=== PATIENT | male | born 1940 | race Hispanic/Latino ===

== ENCOUNTER 2016-10-31 13:36 | Observation (INO) | payer BC, MEDICARE, SELFPAY ==
--- NOTE | 2016-10-31 14:48 | ED PDOC ---
HPI: Abdomen Time Seen by Provider: 10/31/16 13:59 Chief Complaint (Nursing): Abdominal Pain Chief Complaint (Provider): Abdominal Pain History Per: Patient History/Exam Limitations: no limitations Onset/Duration Of Symptoms: Days (6x) Current Symptoms Are (Timing): Still Present Severity: Mild Location Of Pain/Discomfort: Diffuse (started as diffuse pain), Periumbilical ( currently is periumbilical pain) Associated Symptoms: Vomiting (has since resolved), Diarrhea (has since resolved ). denies: Fever, Urinary Symptoms Additional Complaint(s): 76 year old male with no pertinent medical history presents to the ED with complaints of abdominal pain that started out as diffuse but is now periumbilical for 6x days. He reports that he had associated symptoms of vomiting (non bloody) and diarrhea (non bloody) that have since resolved. He denies having a fever, urinary symptoms, and any other medical complaints. PMD: patient does not recall Past Medical History Reviewed: Historical Data, Nursing Documentation, Vital Signs Vital Signs: Last Vital Signs Temp 97.6 F 10/31/16 22:16 Pulse 58 L 10/31/16 22:16 Resp 18 10/31/16 22:16 BP 147/79 10/31/16 22:16 Pulse Ox 95 10/31/16 22:16 - Medical History PMH: Back Problems, CHF, HTN, Hyperlipidemia Denies: Chronic Kidney Disease - Surgical History Surgical History: No Surg Hx - Family History Family History: States: Unknown Family Hx - Social History Alcohol: None Drugs: Denies - Home Medications Home Medications: Ambulatory Orders Medication Instructions Recorded Tamsulosin [Flomax] 0.4 mg PO DAILY 08/04/14 Amlodipine Besylate 10 mg PO DAILY 08/08/14 Aspirin [Ecotrin] 81 mg PO DAILY 08/08/14 Hydrochlorothiazide 12.5 mg PO DAILY 08/08/14 Lisinopril 40 mg PO DAILY 08/08/14 Simvastatin 20 mg PO HS 08/08/14 - Allergies Allergies/Adverse Reactions: Allergies Allergy/AdvReac Type Severity Reaction Status Date / Time No Known Allergies Allergy Verified 07/27/14 08:43 Review of Systems ROS Statement: Except As Marked, All Systems Reviewed And Found Negative Constitutional: Negative for: Fever Gastrointestinal: Positive for: Vomiting (none bloody, has resolved), Abdominal Pain, Diarrhea (non bloody, has resolved) Genitourinary Male: Negative for: Dysuria, Frequency, Incontinence, Hematuria Physical Exam - Reviewed Nursing Documentation Reviewed: Yes Vital Signs Reviewed: Yes - Physical Exam Appears: Positive for: Well, Non-toxic, No Acute Distress Head Exam: Positive for: ATRAUMATIC, NORMOCEPHALIC Cardiovascular/Chest: Positive for: Regular Rate, Rhythm Respiratory: Positive for: Normal Breath Sounds Gastrointestinal/Abdominal: Positive for: Soft, Other (right upper quadrant abdominal tenderness. Everywhere else is soft, non-tender.). Negative for: Tenderness Back: Positive for: Normal Inspection. Negative for: L CVA Tenderness, R CVA Tenderness Neurologic/Psych: Positive for: Alert, Oriented (3x) - Laboratory Results Result Diagrams: 10/31/16 14:55 10/31/16 14:55 - ECG O2 Sat by Pulse Oximetry: 100 (RA) Pulse Ox Interpretation: Normal - Progress Re-evaluation Time: 17:00 Condition: Re-examined, Improving,but remains with symptoms - Physician Consult Information Time Consulting Physican Contacted: 17:40 Physician Contacted: Ernestine Brar Medical Decision Making Medical Decision Makin:59 Initial impression: 76 year old male with abdominal pain and vomiting and dirrhea (that have since resolved). Differential diagnoses include but are not limited to acute gastroenteritis, colitis, diverticulitis, small bowel obstruction, and other abdominal pathologies are observed. Initial plan: * CT abd and pelvis with IV contrast only * CMP * lipase * CBC * reevaluation 14:35 Patient will be placed into ED observation secondary to clinical condition. See ED observation note for further updates. CT abdomen IMPRESSION: No acute inflammatory/infectious process identified in the abdomen or pelvis. No evidence of bowel obstruction. Multiple small gallstones in the gallbladder. No biliary dilatation. 2 mm nonobstructing mid right renal calculus. 1 x 0.7 cm right lower lobe pulmonary nodule adjacent to the diaphragm. Recommend chest CT correlation. Extensive coronary artery calcifications. Enlarged prostate, correlate clinically. Nonspecific peripancreatic lymph nodes. Colonic diverticulosis without diverticulitis Scribe Attestation: Documented by Millicent Trammell, acting as a scribe for Kvng Thompson MD. Provider Scribe Attestation: All medical record entries made by the Scribe were at my direction and personally dictated by me. I have reviewed the chart and agree that the record accurately reflects my personal performance of the history, physical exam, medical decision making, and the department course for this patient. I have also personally directed, reviewed, and agree with the discharge instructions and disposition. ED OBSERVATION Date of observation admission: 10/31/16 Time of observation admission: 14:35 - Observation admission statement Patient is being placed in observation because:: secondary to clinical condition - Goals of Observation Goals of observation are:: Patient is being placed into ED observation pending CT scans, labs, reevaluation , and final disposition. Disposition - Clinical Impression Clinical Impression: Acute pancreatitis - Patient ED Disposition Is Patient to be Admitted: Yes Discussed With DrJean Paul: Sandeep Campuzano Doctor Will See Patient In The: Hospital Counseled Patient/Family Regarding: Studies Performed, Diagnosis - Disposition Disposition Time: 17:30 Condition: FAIR - Pt Status Changed To: Hospital Disposition Of: Observation - POA Present On Arrival: None
[2016-10-31 15:15] LABS: BASO # 0.1 K/uL (0.0-0.2); BASO % 0.5 % (0.0-2.0); EOS # 0.1 K/uL (0.0-0.7); EOS % 0.6 % (0.0-4.0); HEMATOCRIT 41.2 % (35.0-51.0); LYMPH # 2.2 K/uL (1.0-4.3); LYMPH % 21.8 % (20.0-40.0); MEAN CELL VOLUME 85.2 fl (80.0-94.0); MEAN CORPUSCULAR HEMOGLOBIN 28.6 pg (27.0-31.0); MEAN CORPUSCULAR HGB CONC 33.6 g/dL (33.0-37.0); MEAN PLATELET VOLUME 9.1 fl (7.2-11.7); MONO # 0.9 K/uL (0.0-0.8); MONO % 8.6 % (0.0-10.0); NEUT # 6.8 K/uL (1.8-7.0); NEUT % 68.5 % (50.0-75.0); NRBC % 0.1 % (0.0-0.0); WHITE BLOOD COUNT 9.9 K/uL (4.8-10.8)
[2016-10-31 15:50] LABS: ALKALINE PHOSPHATASE 100 U/L (38-126); ALT/SGPT 169 U/L (21-72); AST/SGOT 54 U/L (17-59); BILIRUBIN,TOTAL 0.6 mg/dl (0.2-1.3); BLOOD UREA NITROGEN 20 mg/dl (9-20); CALCIUM 9.7 mg/dL (8.4-10.2); CARBON DIOXIDE 29 mmol/L (22-30); CHLORIDE 101 mmol/L (98-107); GFR AFRICAN-AMERICAN > 60; GLUCOSE,RANDOM 98 mg/dL (75-110); LIPASE 1549 U/L (23-300); POTASSIUM 3.7 MMOL/L (3.6-5.0); SODIUM 143 mmol/l (132-148); TOTAL PROTEIN 7.5 G/DL (6.3-8.2)
[2016-10-31] MEDS ORDERED: Sodium Chloride 0.9% 1,000 ML IV STA (17:34)
[2016-10-31] MEDS ORDERED: Sodium Chloride 0.9% 1,000 ML IV SCH (17:45)
[2016-10-31] MEDS ORDERED: Iodixanol 320 MG/ML 100 ML BOTTLE IV ONE (18:54)
[2016-10-31] MEDS ORDERED: Sodium Chloride 0.9% 50 ML IV ONE (18:55)
[2016-11-01 07:36] VITALS: RESP 20
[2016-11-01 08:09] LABS: BASO % 0.5 % (0.0-2.0); EOS # 0.1 K/uL (0.0-0.7); EOS % 0.7 % (0.0-4.0); HEMATOCRIT 41.4 % (35.0-51.0); LYMPH # 2.5 K/uL (1.0-4.3); LYMPH % 27.1 % (20.0-40.0); MEAN CELL VOLUME 85.8 fl (80.0-94.0); MEAN CORPUSCULAR HEMOGLOBIN 28.4 pg (27.0-31.0); MEAN CORPUSCULAR HGB CONC 33.2 g/dL (33.0-37.0); MEAN PLATELET VOLUME 9.2 fl (7.2-11.7); MONO # 0.8 K/uL (0.0-0.8); MONO % 8.2 % (0.0-10.0); NEUT % 63.5 % (50.0-75.0); NRBC % 0.1 % (0.0-0.0); RED CELL DISTRIBUTION WIDTH 13.8 % (11.5-14.5); WHITE BLOOD COUNT 9.4 K/uL (4.8-10.8)
--- NOTE | 2016-11-01 08:25 | CP.PCM.HP ---
History of Present Illness - History of Present Illness History of Present Illness: pt aadmitted for epigastric pain found to ahve lipase 1500 and pancreatitis, at present w/o abd pain, n/v/d. pt feels hungry. ct abd w/o pancreatitis but found peipancreatic lymph and gall stones w/o obstruction, found lung nodule that has not been worked up in past. pt states quit smoking several years ago. no compalitns at [facility]. pending gi consult. Present on Admission - Present on Admission Any Indicators Present on Admission: No Review of Systems - Gastrointestinal Gastrointestinal: As Per HPI, Abdominal Pain Past Patient History - Past Medical History & Family History Past Medical History?: Yes - Past Social History Alcohol: None Drugs: Denies - CARDIAC Hx Congestive Heart Failure: Yes Hx Hypertension: Yes - PULMONARY Hx Respiratory Disorders: No - NEUROLOGICAL Hx Neurological Disorder: No - HEENT Hx HEENT Problems: No - RENAL Hx Chronic Kidney Disease: No - ENDOCRINE/METABOLIC Hx Endocrine Disorders: No - HEMATOLOGICAL/ONCOLOGICAL Hx Blood Disorders: No Hx AIDS: No Hx Human Immunodeficiency Virus (HIV): No - INTEGUMENTARY Hx Dermatological Problems: No Other/Comment: sun foote noted to face forehead and ext - MUSCULOSKELETAL/RHEUMATOLOGICAL Hx Arthritis: Yes (spine) Hx Falls: No - GASTROINTESTINAL Hx Gastrointestinal Disorders: No - GENITOURINARY/GYNECOLOGICAL Hx Genitourinary Disorders: No Other/Comment: denies - PSYCHIATRIC Hx Psychophysiologic Disorder: No Hx Substance Use: No - SURGICAL HISTORY Hx Surgeries: No - ANESTHESIA Hx Anesthesia: No Meds Allergies/Adverse Reactions: Allergies Allergy/AdvReac Type Severity Reaction Status Date / Time No Known Allergies Allergy Verified 07/27/14 08:43 Physical Exam - Constitutional Appears: Well, Non-toxic, No Acute Distress - Head Exam Head Exam: ATRAUMATIC, NORMAL INSPECTION, NORMOCEPHALIC - Eye Exam Eye Exam: EOMI, Normal appearance, PERRL Pupil Exam: NORMAL ACCOMODATION, PERRL - ENT Exam ENT Exam: Mucous Membranes Moist, Normal Exam - Neck Exam Neck exam: Positive for: Normal Inspection - Respiratory Exam Respiratory Exam: Clear to Auscultation Bilateral, NORMAL BREATHING PATTERN - Cardiovascular Exam Cardiovascular Exam: REGULAR RHYTHM, RRR, +S1, +S2 - GI/Abdominal Exam GI & Abdominal Exam: Normal Bowel Sounds, Soft. absent: Tenderness - Extremities Exam Extremities exam: Positive for: full ROM, normal capillary refill, normal inspection, pedal pulses present - Back Exam Back exam: NORMAL INSPECTION - Neurological Exam Neurological exam: Alert, CN II-XII Intact, Normal Gait, Oriented x3, Reflexes Normal - Psychiatric Exam Psychiatric exam: Normal Affect, Normal Mood - Skin Skin Exam: Dry, Intact, Normal Color, Warm Results - Vital Signs Recent Vital Signs: Last Vital Signs Temp 98.4 F 11/01/16 07:36 Pulse 89 11/01/16 07:36 Resp 20 11/01/16 07:36 BP 154/80 H 11/01/16 07:36 Pulse Ox 96 11/01/16 07:36 - Labs Result Diagrams: 11/01/16 06:30 11/01/16 06:30 Labs: Laboratory Results - last 24 hr 10/31/16 11/01/16 14:55 06:30 WBC 9.9 9.4 RBC 4.83 4.83 Hgb 13.8 13.7 Hct 41.2 41.4 MCV 85.2 85.8 MCH 28.6 28.4 MCHC 33.6 33.2 RDW 14.0 13.8 Plt Count 150 148 MPV 9.1 9.2 Neut % (Auto) 68.5 63.5 Lymph % (Auto) 21.8 27.1 [place] % (Auto) 8.6 8.2 Eos % (Auto) 0.6 0.7 Baso % (Auto) 0.5 0.5 Neut # 6.8 6.0 Lymph # 2.2 2.5 [place] # 0.9 H 0.8 Eos # 0.1 0.1 Baso # 0.1 0.0 Sodium 143 Potassium 3.7 Chloride 101 Carbon Dioxide 29 Anion Gap 17 BUN 20 Creatinine 0.8 Est GFR ( Amer) > 60 Est GFR (Non-Af Amer) > 60 Random Glucose 98 Calcium 9.7 Total Bilirubin 0.6 AST 54 ALT 169 H Alkaline Phosphatase 100 Total Protein 7.5 Albumin 3.8 Globulin 3.7 Albumin/Globulin Ratio 1.0 Lipase 1549 H Assessment & Plan (1) Acute pancreatitis Assessment and Plan: npo last night, adv to liquids this am as pain free and lipase trending down gi consult ivf pain control Status: Acute (2) DVT prophylaxis Assessment and Plan: scd and aehose ambulation Status: Acute (3) Lung nodule < 6cm on CT Assessment and Plan: chest ct outpt f/u Status: Acute Decision To Admit - Pt Status Changed To: Hospital Disposition Of: Observation - . Bed Request Type: Med/Surg Admitting Physician: Sarai Christina
[2016-11-01 08:29] LABS: ALKALINE PHOSPHATASE 108 U/L (38-126); ALT/SGPT 140 U/L (21-72); AST/SGOT 43 U/L (17-59); BILIRUBIN,TOTAL 0.9 mg/dl (0.2-1.3); BLOOD UREA NITROGEN 14 mg/dl (9-20); CALCIUM 9.3 mg/dL (8.4-10.2); CARBON DIOXIDE 29 mmol/L (22-30); CHLORIDE 102 mmol/L (98-107); GFR AFRICAN-AMERICAN > 60; GLUCOSE,RANDOM 105 mg/dL (75-110); LIPASE 793 U/L (23-300); POTASSIUM 3.5 MMOL/L (3.6-5.0); SODIUM 145 mmol/l (132-148); TOTAL PROTEIN 7.3 G/DL (6.3-8.2)
--- NOTE | 2016-11-01 10:12 | CT ---
PROCEDURE: CT Abdomen and Pelvis with contrast HISTORY: abdominal pain v/d COMPARISON: None. TECHNIQUE: Contrast dose: 100 cc Visipaque 320. Radiation dose: Total exam DLP = 1201.52 lanier mGy-cm. This CT exam was performed using one or more of the following dose reduction techniques: Automated exposure control, adjustment of the mA and/or kV according to patient size, and/or use of iterative reconstruction technique. FINDINGS: LOWER THORAX: 1 cm nodule right lower lobe. Well-circumscribed of uncertain etiology and significance. LIVER: Unremarkable. No gross lesion or ductal dilatation. GALLBLADDER AND BILE DUCTS: Cholelithiasis without CT evidence of acute cholecystitis. PANCREAS: Unremarkable. No gross lesion or ductal dilatation. SPLEEN: Unremarkable. ADRENALS: Unremarkable. No mass. Will KIDNEYS AND URETERS: Unremarkable. No hydronephrosis. No solid mass. Incidental finding(s): Multiple bilateral renal cysts the largest in the right kidney measures 6.2 x 7.3 cm. VASCULATURE: Unremarkable. No aortic aneurysm. BOWEL: Thickening of the wall of the 4th portion the duodenum and proximal jejunum consistent with enteritis, mild no evidence of mechanical obstruction. APPENDIX: No abnormalities to suggest acute appendicitis. No right lower quadrant inflammatory processes identified. PERITONEUM: Unremarkable. No free fluid. No free air. LYMPH NODES: Unremarkable. No enlarged lymph nodes. BLADDER: Unremarkable. REPRODUCTIVE: Enlarged prostate 6 x 7.4 cm. BONES: No acute fracture. Hemangioma L1 vertebral body a benign/incidental finding. OTHER FINDINGS: None. IMPRESSION: Duodenitis/jejunitis, mild and segmental without associated abnormality. Cholelithiasis without CT evidence of acute cholecystitis. 1 cm pulmonary nodule right lower lobe. In the absence of prior studies, follow-up CT of the thorax recommended. Concordant results (preliminary interpretation) provided by [facility]. Procedure Completed: 19:22. Preliminary ([facility]) Report: Dictated and Authenticated: 19:56. Final Interpretation: . November 01, 2016. At 10:09. November 01, 2016.
[2016-11-01] MEDS ORDERED: Lidocaine/Prilocaine CREAM 5GM TP ONE (11:21)
--- NOTE | 2016-11-01 12:09 | CP.PCM.CON ---
History of Present Illness - History of Present Illness History of Present Illness: CC: Abdominal pain HPI: 76 year old male with h/o back pain, CHF, HTN, HLD who presents with abdominal pain. He reports that it started 1 week ago. He says the pain started in the epigastric area, but radiatates across his abdomen. No back pain. He had associated nausea/vomiting with the pain. He feels better today with reduced pain. He is tolerating liquids already without exacerbation of pain. No chest pain or sob. No fever. No prior episodes. No etoh abuse. No new meds. PMHx CHF, HTN, HLD PSHx denies FHx no known h/o pancreas disease ROS A comprehensive review of systems was performed and was negative apart from HPI SHx non smoker or drinker, no drugs Past Patient History - Past Medical History & Family History Past Medical History?: Yes - Past Social History Alcohol: None Drugs: Denies - CARDIAC Hx Congestive Heart Failure: Yes Hx Hypertension: Yes - PULMONARY Hx Respiratory Disorders: No - NEUROLOGICAL Hx Neurological Disorder: No - HEENT Hx HEENT Problems: No - RENAL Hx Chronic Kidney Disease: No - ENDOCRINE/METABOLIC Hx Endocrine Disorders: No - HEMATOLOGICAL/ONCOLOGICAL Hx Blood Disorders: No Hx AIDS: No Hx Human Immunodeficiency Virus (HIV): No - INTEGUMENTARY Hx Dermatological Problems: No Other/Comment: sun foote noted to face forehead and ext - MUSCULOSKELETAL/RHEUMATOLOGICAL Hx Arthritis: Yes (spine) Hx Falls: No - GASTROINTESTINAL Hx Gastrointestinal Disorders: No - GENITOURINARY/GYNECOLOGICAL Hx Genitourinary Disorders: No Other/Comment: denies - PSYCHIATRIC Hx Psychophysiologic Disorder: No Hx Substance Use: No - SURGICAL HISTORY Hx Surgeries: No - ANESTHESIA Hx Anesthesia: No Meds Allergies/Adverse Reactions: Allergies Allergy/AdvReac Type Severity Reaction Status Date / Time No Known Allergies Allergy Verified 07/27/14 08:43 - Medications Medications: Current Medications Amlodipine Besylate (Norvasc) 10 mg PO DAILY [facility] Last Admin: 11/01/16 09:08 Dose: 10 mg Aspirin (Ecotrin) 81 mg PO DAILY [facility] Last Admin: 11/01/16 09:08 Dose: 81 mg Atorvastatin Calcium (Lipitor) 10 mg PO [facility] Last Admin: 11/01/16 00:01 Dose: 10 mg Hydrochlorothiazide (Microzide) 12.5 mg PO DAILY [facility] Last Admin: 11/01/16 09:09 Dose: 12.5 mg Sodium Chloride (Sodium Chloride 0.9%) 1,000 mls @ 125 mls/hr IV .Q8H [facility] Stop: 11/01/16 17:46 Last Admin: 11/01/16 02:06 Dose: 125 mls/hr Ketorolac Tromethamine (Toradol) 30 mg IVP Q6 PRN PRN Reason: pain 2-5 Lisinopril (Zestril) 40 mg PO DAILY [facility] Last Admin: 11/01/16 09:09 Dose: 40 mg Morphine Sulfate (Morphine) 2 mg IVP Q4 PRN PRN Reason: abd pain 6-10 Tamsulosin HCl (Flomax) 0.4 mg PO DAILY [facility] Last Admin: 11/01/16 09:10 Dose: 0.4 mg Physical Exam - Constitutional Appears: Well, No Acute Distress - Head Exam Head Exam: ATRAUMATIC, NORMOCEPHALIC - Eye Exam Eye Exam: Normal appearance, Scleral icterus - ENT Exam ENT Exam: Mucous Membranes Moist, Normal Oropharynx - Neck Exam Neck exam: Negative for: Lymphadenopathy - Respiratory Exam Respiratory Exam: NORMAL BREATHING PATTERN. absent: Respiratory Distress, Stridor - Cardiovascular Exam Cardiovascular Exam: REGULAR RHYTHM, +S1, +S2 - GI/Abdominal Exam GI & Abdominal Exam: Soft. absent: Distended, Tenderness - Neurological Exam Neurological exam: Alert, Oriented x3 - Psychiatric Exam Psychiatric exam: Normal Affect, Normal Mood - Skin Skin Exam: Dry, Warm Results - Vital Signs Recent Vital Signs: Last Vital Signs Temp 98.4 F 11/01/16 07:36 Pulse 89 11/01/16 07:36 Resp 20 11/01/16 07:36 BP 158/80 H 11/01/16 09:09 Pulse Ox 96 11/01/16 07:36 - Labs Result Diagrams: 11/01/16 06:30 11/01/16 06:30 Labs: Laboratory Results - last 24 hr 10/31/16 11/01/16 14:55 06:30 WBC 9.9 9.4 RBC 4.83 4.83 Hgb 13.8 13.7 Hct 41.2 41.4 MCV 85.2 85.8 MCH 28.6 28.4 MCHC 33.6 33.2 RDW 14.0 13.8 Plt Count 150 148 MPV 9.1 9.2 Neut % (Auto) 68.5 63.5 Lymph % (Auto) 21.8 27.1 [place] % (Auto) 8.6 8.2 Eos % (Auto) 0.6 0.7 Baso % (Auto) 0.5 0.5 Neut # 6.8 6.0 Lymph # 2.2 2.5 [place] # 0.9 H 0.8 Eos # 0.1 0.1 Baso # 0.1 0.0 Sodium 143 145 Potassium 3.7 3.5 L Chloride 101 102 Carbon Dioxide 29 29 Anion Gap 17 18 BUN 20 14 Creatinine 0.8 0.8 Est GFR ( Amer) > 60 > 60 Est GFR (Non-Af Amer) > 60 > 60 Random Glucose 98 105 Calcium 9.7 9.3 Total Bilirubin 0.6 0.9 AST 54 43 ALT 169 H 140 H Alkaline Phosphatase 100 108 Total Protein 7.5 7.3 Albumin 3.8 3.7 Globulin 3.7 3.6 Albumin/Globulin Ratio 1.0 1.0 Lipase 1549 H 793 H Assessment & Plan - Assessment and Plan (Free Text) Assessment: 76 year old male with h/o HTN, HLD, CHF a/w acute pancreatitis 1. Acute pancreatitis 2. Cholelithiasis Plan: -advance diet as tolerated to low fat -IV hydration with LR -recommend surgical consultation for consideration of cholecystectomy -pain control as needed -ct scan reviewed - Date & Time Date: 11/01/16 Time: 12:08
[2016-11-01 17:04] VITALS: BP 125/80; PULSE 78; TEMP 98; O2SAT 98
--- NOTE | 2016-11-01 17:25 | CT ---
PROCEDURE: CT Chest without contrast HISTORY: lung nodule COMPARISON: October 31, 2016. CT abdomen and pelvis. 1 cm pulmonary nodule identified right lower lobe. TECHNIQUE: Contiguous axial images were obtained through the chest without intravenous contrast enhancement. Sagittal and coronal reconstructions were performed. Radiation dose (DLP): 691.75 mGy-cm. This CT exam was performed using one or more of the following dose reduction techniques: Automated exposure control, adjustment of the mA and/or kV according to patient size, and/or use of iterative reconstruction technique. FINDINGS: LUNGS: Faint peripheral infiltrate anterior segment right upper lobe. Lower airway disease/bronchitis with peribronchial thickening. Confirmation of pulmonary nodule 1 cm adjacent to the diaphragm right lower lobe. 4 mm pulmonary nodule posterior segment right upper lobe. Less than 2 mm pulmonary nodule basilar segment left lower lobe. MEDIASTINUM: Unremarkable thoracic aorta. No aneurysm. Normal sized heart. Main pulmonary artery unremarkable. No vascular congestion. No lymphadenopathy. PLEURA: No pleural fluid. No pneumothorax. BONES: No fracture. No destructive lesion. UPPER ABDOMEN: Cholelithiasis without CT evidence of acute cholecystitis. OTHER FINDINGS: None. IMPRESSION: Pulmonary nodules right lower lobe, right upper lobe 1 cm and 4 mm respectively. Less than 2 mm nodule left lower lobe. No additional suspicious pulmonary abnormalities. Lower airway disease/ bronchitis -pneumonitis.
--- NOTE | 2016-11-01 20:02 | CP.PCM.DIS ---
Provider - Provider Date of Admission: 10/31/16 14:35 Attending physician: Sarai Christina MD Time Spent in preparation of Discharge (in minutes): 15 Diagnosis - Discharge Diagnosis (1) Acute pancreatitis Status: Acute (2) DVT prophylaxis Status: Acute (3) Lung nodule < 6cm on CT Status: Acute Hospital Course - Lab Results Lab Results: Most Recent Lab Values WBC 9.4 K/uL (4.8-10.8) 11/01/16 06:30 RBC 4.83 Mil/uL (4.40-5.90) 11/01/16 06:30 Hgb 13.7 g/dL (12.0-18.0) 11/01/16 06:30 Hct 41.4 % (35.0-51.0) 11/01/16 06:30 MCV 85.8 fl (80.0-94.0) 11/01/16 06:30 MCH 28.4 pg (27.0-31.0) 11/01/16 06:30 MCHC 33.2 g/dL (33.0-37.0) 11/01/16 06:30 RDW 13.8 % (11.5-14.5) 11/01/16 06:30 Plt Count 148 K/uL (130-400) 11/01/16 06:30 MPV 9.2 fl (7.2-11.7) 11/01/16 06:30 Neut % (Auto) 63.5 % (50.0-75.0) 11/01/16 06:30 Lymph % (Auto) 27.1 % (20.0-40.0) 11/01/16 06:30 [place] % (Auto) 8.2 % (0.0-10.0) 11/01/16 06:30 Eos % (Auto) 0.7 % (0.0-4.0) 11/01/16 06:30 Baso % (Auto) 0.5 % (0.0-2.0) 11/01/16 06:30 Neut # 6.0 K/uL (1.8-7.0) 11/01/16 06:30 Lymph # 2.5 K/uL (1.0-4.3) 11/01/16 06:30 [place] # 0.8 K/uL (0.0-0.8) 11/01/16 06:30 Eos # 0.1 K/uL (0.0-0.7) 11/01/16 06:30 Baso # 0.0 K/uL (0.0-0.2) 11/01/16 06:30 Sodium 145 mmol/l (132-148) 11/01/16 06:30 Potassium 3.5 MMOL/L (3.6-5.0) L 11/01/16 06:30 Chloride 102 mmol/L (98-107) 11/01/16 06:30 Carbon Dioxide 29 mmol/L (22-30) 11/01/16 06:30 Anion Gap 18 (10-20) 11/01/16 06:30 BUN 14 mg/dl (9-20) 11/01/16 06:30 Creatinine 0.8 mg/dL (0.8-1.5) 11/01/16 06:30 Est GFR ( Amer) > 60 11/01/16 06:30 Est GFR (Non-Af Amer) > 60 11/01/16 06:30 Random Glucose 105 mg/dL (75-110) 11/01/16 06:30 Calcium 9.3 mg/dL (8.4-10.2) 11/01/16 06:30 Total Bilirubin 0.9 mg/dl (0.2-1.3) 11/01/16 06:30 AST 43 U/L (17-59) 11/01/16 06:30 ALT 140 U/L (21-72) H 11/01/16 06:30 Alkaline Phosphatase 108 U/L (38-126) 11/01/16 06:30 Total Protein 7.3 G/DL (6.3-8.2) 11/01/16 06:30 Albumin 3.7 g/dL (3.5-5.0) 11/01/16 06:30 Globulin 3.6 gm/dL (2.2-3.9) 11/01/16 06:30 Albumin/Globulin Ratio 1.0 (1.0-2.1) 11/01/16 06:30 Lipase 793 U/L (23-300) H 11/01/16 06:30 Discharge Exam - Head Exam Head Exam: ATRAUMATIC, NORMOCEPHALIC Discharge Plan - Follow Up Plan Condition: FAIR Disposition: HOME/ ROUTINE Instructions: Pancreatitis (DC) Additional Instructions: tolerated all food well. no pain throughout day today. no f/c, n/v/d. bw noted. cleared by gi for dc imaign noted. pulm nodules noted. pt has pmd appt this week. no pulm s/s-no cough/congestion noted/reported for dc. f/u pmd, rted prn, medsp er med rec final dx-pancreatitis, pulm nodules bland diet.
== END 2016-11-01 19:03 | disposition home or self-care (01) ==
LOC: H.ER 13:36 → H.EROBSV 14:35 → H.ERHOLD 17:40 → H.MEDSURG1 22:03
PROVIDERS: ADMIT Family Medicine; ATTEND Family Medicine
DX: K85.90 Acute pancreatitis without necrosis or infection, unspecified (principal); R91.1 Solitary pulmonary nodule; K80.20 Calculus of gallbladder without cholecystitis without obstruction; I11.0 Hypertensive heart disease with heart failure; I50.9 Heart failure, unspecified; E78.5 Hyperlipidemia, unspecified; Z87.891 Personal history of nicotine dependence; Z79.82 Long term (current) use of aspirin
CPT/HCPCS: 36415; 71250; 74177; 80053; 83690; 85025; 96361; 96374; 99283; G0378; J2270; J7040; Q9967

== ENCOUNTER 2017-02-17 16:45 | Emergency (ER) | payer MEDICARE ==
[2017-02-17 16:57] VITALS: BP 115/51; PULSE 65; RESP 20; TEMP 98.6; O2SAT 96
[2017-02-17 17:54] LABS: BASO # 0.1 K/uL (0.0-0.2); BASO % 0.7 % (0.0-2.0); EOS # 0.1 K/uL (0.0-0.7); EOS % 0.9 % (0.0-4.0); HEMOGLOBIN 14.1 g/dL (12.0-18.0); LYMPH % 29.7 % (20.0-40.0); MEAN CORPUSCULAR HEMOGLOBIN 29.2 pg (27.0-31.0); MEAN CORPUSCULAR HGB CONC 34.4 g/dL (33.0-37.0); MEAN PLATELET VOLUME 8.5 fl (7.2-11.7); MONO % 9.5 % (0.0-10.0); NEUT % 59.2 % (50.0-75.0); NRBC % 0.1 % (0.0-0.0); RBC 4.84 Mil/uL (4.40-5.90); RED CELL DISTRIBUTION WIDTH 14.6 % (11.5-14.5); WHITE BLOOD COUNT 10.1 K/uL (4.8-10.8)
--- NOTE | 2017-02-17 17:56 | ED PDOC ---
HPI: Chest Pain Time Seen by Provider: 02/17/17 17:04 Chief Complaint (Nursing): Chest Pain Chief Complaint (Provider): Left Axilla Pain History Per: Patient History/Exam Limitations: no limitations Onset/Duration Of Symptoms: Intermittent Episodes Current Symptoms Are (Timing): Still Present Additional Complaint(s): Mateo Botello, a 76 year old male, with a past medical history of congestive heart failure, presents to the ED complaining of pain to the left axilla x1 week. The patient states that the pain has not moved into the left side of his chest. He states that the pain is intermittent and he is not experiencing any new shortness of breath. The patient states that he usually uses his inhaler when climbing stairs and when he is walking long distances. Denies cough, palpitations. Against Medical Advice - AMA Patient Left Against Medical Advice: The patient declines admission to the hospital and wishes to leave the Emergency Department. This action is against my medical advice. This decision was made with informed refusal. The patient was told that admission to the hospital is necessary. Explanation of the reasons why were discussed. The risks of leaving were explained to the patient and include, but are not limited to, worsening of known or currently unknown conditions, permanent disability and from undiagnosed or untreated conditions. The patient has the capacity to make this informed decision and understands my explanation of the current medical problem and risks of leaving. The patient voluntarily accepts these risks and signed an AMA form documenting our conversation. The patient was given the opportunity to ask questions and reconsider. The patient was encouraged to return to the Emergency Department at any time for further care. Past Medical History Reviewed: Historical Data, Nursing Documentation, Vital Signs Vital Signs: Last Vital Signs Temp 98.6 F 02/17/17 16:55 Pulse 65 02/17/17 16:55 Resp 20 02/17/17 16:55 BP 115/51 L 02/17/17 16:55 Pulse Ox 96 02/22/17 08:21 - Medical History PMH: Arthritis (spine), Back Problems, CHF, HTN, Hyperlipidemia Denies: HIV, Chronic Kidney Disease - Family History Family History: States: Unknown Family Hx - Home Medications Home Medications: Ambulatory Orders Medication Instructions Recorded Tamsulosin [Flomax] 0.4 mg PO DAILY 08/04/14 Amlodipine Besylate 10 mg PO DAILY 08/08/14 Aspirin [Ecotrin] 81 mg PO DAILY 08/08/14 Hydrochlorothiazide 12.5 mg PO DAILY 08/08/14 Lisinopril 40 mg PO DAILY 08/08/14 Simvastatin 20 mg PO HS 08/08/14 - Allergies Allergies/Adverse Reactions: Allergies Allergy/AdvReac Type Severity Reaction Status Date / Time No Known Allergies Allergy Verified 02/17/17 16:54 Review of Systems ROS Statement: Except As Marked, All Systems Reviewed And Found Negative Cardiovascular: Positive for: Chest Pain. Negative for: Palpitations Respiratory: Negative for: Cough, Shortness of Breath (no new shortness of breath) Physical Exam - Reviewed Nursing Documentation Reviewed: Yes Vital Signs Reviewed: Yes - Physical Exam Appears: Positive for: Non-toxic, No Acute Distress Head Exam: Positive for: ATRAUMATIC, NORMAL INSPECTION, NORMOCEPHALIC Skin: Positive for: Normal Color, Warm, Dry Eye Exam: Positive for: Normal appearance, EOMI, PERRL ENT: Positive for: Normal ENT Inspection Neck: Positive for: Normal, Painless ROM, Supple Cardiovascular/Chest: Positive for: Regular Rate, Rhythm, Chest Non Tender (No tenderness to chest wall). Negative for: Tachycardia Respiratory: Positive for: Crackles (Bilateral crackles). Negative for: Wheezing, Respiratory Distress Gastrointestinal/Abdominal: Positive for: Normal Exam, Bowel Sounds, Soft. Negative for: Tenderness, Guarding, Rebound Back: Positive for: Normal Inspection Extremity: Positive for: Normal ROM, Other (+2 pitting edema bilaterally.). Negative for: Tenderness, Pedal Edema, Deformity Neurologic/Psych: Positive for: Alert, Oriented - Laboratory Results Result Diagrams: 02/17/17 17:40 02/17/17 17:40 - ECG Interpretation Of ECG: NSR @ 63, no ST-T changes. O2 Sat by Pulse Oximetry: 96 (RA) Pulse Ox Interpretation: Normal - Radiology X-Ray: Read By Radiologist X-Ray Interpretation: Cardiomegaly Medical Decision Making Medical Decision Makin Initial Impression: 76 year old male presenting with CHF vs Chest pain Initial Plan: * EKG * PROBNP * Comp Metabolic Panel * Troponin * Udip * CBC * PTT * Prothrombin Time * Chest x-ray * Urinalysis * Reevaluation ___ Scribe Attestation Documented by Priyanka Ryan acting as a scribe for Ana Cristina Moses MD. Provider Attestation: All medical record entries made by the Scribe were at my direction and personally dictated by me. I have reviewed the chart and agree that the record accurately reflects my personal performance of the history, physical exam, medical decision making, and the department course for this patient. I have also personally directed, reviewed, and agree with the discharge instructions and disposition. Disposition - Clinical Impression Clinical Impression: Chest pain - Disposition Disposition: Against Medical Advice Disposition Time: 18:35 Condition: UNKNOWN Forms: [employer] (Kinyarwanda)
[2017-02-17 18:02] LABS: ALB/GLOB RATIO 1.3 (1.0-2.1); ALT/SGPT 44 U/L (21-72); AST/SGOT 27 U/L (17-59); BLOOD UREA NITROGEN 19 mg/dl (9-20); CALCIUM 9.4 mg/dL (8.4-10.2); GFR AFRICAN-AMERICAN > 60; GFR NON-AFRICAN AMERICAN > 60
[2017-02-17 18:05] LABS: PROTHROMBIN TIME 12.1 Seconds (9.8-13.1)
[2017-02-17 18:06] LABS: INR 1.2 (0.9-1.2); PARTIAL THROMBOPLASTIN TIME 32.7 Seconds (25.6-37.1)
--- NOTE | 2017-02-17 18:10 | RAD ---
HISTORY: CP COMPARISON: Chest x-ray performed 08/08/14 TECHNIQUE: Chest, one view. FINDINGS: LUNGS: No focal consolidation. Please note that chest x-ray has limited sensitivity for the detection of pulmonary masses. PLEURA: No significant pleural effusion identified. No definite pneumothorax . CARDIOVASCULAR: Cardiomegaly. OSSEOUS STRUCTURES: Degenerative changes of the spine. VISUALIZED UPPER ABDOMEN: Unremarkable. OTHER FINDINGS: None. IMPRESSION: Cardiomegaly.
[2017-02-17 18:14] LABS: B-TYPE NATRIURETIC PEPTIDE 83.1 pg/ml (0-900)
[2017-02-17] MEDS ORDERED: Potassium Chloride 20 mEq ER Tab PO STA (18:21)
[2017-02-17 19:23] LABS: SQUAMOUS EPITHIAL < 1 /hpf (0-5); URINE BILIRUBIN NEGATIVE (NEGATIVE); URINE BLOOD NEGATIVE (NEGATIVE); URINE CLARITY SLIGHTY-CLOUDY (Clear); URINE COLOR YELLOW (YELLOW); URINE GLUCOSE (UA) NEG (Normal); URINE LEUKOCYTE ESTERASE NEG Leu/uL (Negative); URINE NITRATE NEGATIVE (NEGATIVE); URINE PROTEIN 100 mg/dL (NEGATIVE); URINE UROBILINOGEN 0.2-1.0 mg/dL (0.2-1.0)
--- NOTE | 2017-02-18 10:44 | CARD ---
APPROVED REPORT EKG Measurement Heart [id number] <Conclusion> Normal sinus rhythm Normal ECG
== END 2017-02-17 18:59 | disposition home or self-care (01) ==
LOC: H.ER 16:45
DX: R07.89 Other chest pain (principal); E78.5 Hyperlipidemia, unspecified; I11.0 Hypertensive heart disease with heart failure; I50.9 Heart failure, unspecified; Z79.82 Long term (current) use of aspirin

== ENCOUNTER 2017-12-11 09:19 | Inpatient (IN) | payer MEDICARE, OTHER ==
[2017-12-11 09:23] VITALS: BMI 29.0
[2017-12-11] MEDS ORDERED: Sodium Chloride 0.9% 1,000 ML IV STA (09:44)
--- NOTE | 2017-12-11 10:02 | ED PDOC ---
HPI: Abdomen Time Seen by Provider: 12/11/17 09:40 Chief Complaint (Nursing): Abdominal Pain Chief Complaint (Provider): Abdominal Pain History Per: Patient History/Exam Limitations: no limitations Onset/Duration Of Symptoms: Days (x1) Outside of [place] travel?: No Current Symptoms Are (Timing): Still Present Location Of Pain/Discomfort: Other (LQ) Associated Symptoms: Nausea, Diarrhea. denies: Fever, Vomiting Additional Complaint(s): 77 y/o male with a history of HTN presents to the ED for lower abdominal pain. Patient states the pain began yesterday and is associated with nausea and diarrhea. He denies any vomiting, fever, or blood in diarrhea. PMD: none provided Past Medical History Reviewed: Historical Data, Nursing Documentation, Vital Signs Vital Signs: Last Vital Signs Temp 98.7 F 12/11/17 09:22 Pulse 58 L 12/11/17 09:22 Resp 16 12/11/17 09:22 BP 128/54 L 12/11/17 09:22 Pulse Ox 94 L 12/11/17 10:11 - Medical History PMH: Arthritis (spine), Back Problems, CHF, HTN, Hyperlipidemia Denies: HIV, Chronic Kidney Disease - Surgical History Surgical History: Cholecystectomy - Family History Family History: States: Unknown Family Hx - Social History Current smoker - smoking cessation education provided: No Ex-Smoker (has not smoked in the last 12 months): No Alcohol: None Drugs: Denies - Home Medications Home Medications: Ambulatory Orders Medication Instructions Recorded Tamsulosin [Flomax] 0.4 mg PO DAILY 08/04/14 Amlodipine Besylate 10 mg PO DAILY 08/08/14 Aspirin [Ecotrin] 81 mg PO DAILY 08/08/14 Hydrochlorothiazide 12.5 mg PO DAILY 08/08/14 Lisinopril 40 mg PO DAILY 08/08/14 Simvastatin 20 mg PO HS 08/08/14 - Allergies Allergies/Adverse Reactions: Allergies Allergy/AdvReac Type Severity Reaction Status Date / Time No Known Allergies Allergy Verified 12/11/17 09:29 Review of Systems ROS Statement: Except As Marked, All Systems Reviewed And Found Negative Constitutional: Negative for: Fever Gastrointestinal: Positive for: Nausea, Abdominal Pain (lower quadrant), Diarrhea. Negative for: Vomiting, Hematochezia Physical Exam - Reviewed Nursing Documentation Reviewed: Yes Vital Signs Reviewed: Yes - Physical Exam Appears: Positive for: Non-toxic, No Acute Distress Head Exam: Positive for: ATRAUMATIC, NORMAL INSPECTION, NORMOCEPHALIC Skin: Positive for: Normal Color, Warm, DRY Eye Exam: Positive for: EOMI, Normal appearance, PERRL ENT: Positive for: Normal ENT Inspection, Other (mucous membranes dry) Cardiovascular/Chest: Positive for: Regular Rate, Rhythm. Negative for: Murmur Respiratory: Positive for: Normal Breath Sounds. Negative for: Respiratory Distress Gastrointestinal/Abdominal: Positive for: Soft, Tenderness (LQ bilaterally). Negative for: Guarding, Rebound Extremity: Positive for: Normal ROM Neurologic/Psych: Positive for: Alert (awake), Oriented (x3). Negative for: Motor/Sensory Deficits - Laboratory Results Result Diagrams: 12/11/17 09:58 12/11/17 09:58 - ECG O2 Sat by Pulse Oximetry: 94 (RA) Pulse Ox Interpretation: Normal Medical Decision Making Medical Decision Making: Time: 09:22 Impression: will be completed later per provider Initial Plan: * CAT Scan Abd/Pelvis IV contrast * CMP * UDip * CBC * Morphine 2 mg IVP * IV Fluids * Zofran 4 mg PO Scribe Attestation: Documented by Neisha Salazar acting as a scribe for Luz Lovell MD. Scribe Attestation: All medical record entries made by the Scribe were at my direction and personally dictated by me. I have reviewed the chart and agree that the record accurately reflects my personal performance of the history, physical exam, medical decision making, and the department course for this patient. I have also personally directed, reviewed, and agree with the discharge instructions and disposition. Disposition - Clinical Impression Clinical Impression: Diverticulitis - Patient ED Disposition Is Patient to be Admitted: Yes - Disposition Disposition Time: 13:07 Condition: FAIR Forms: [employer] (Turkmen) - Pt Status Changed To: Hospital Disposition Of: Inpatient - Admit Certification Admit to Inpatient:: After my assessment, the patient will require hospitalization for at least two midnights. This is because of the severity of symptoms shown, intensity of services needed, and/or the medical risk in this patient being treated as an outpatient. - POA Present On Arrival: None
[2017-12-11 10:16] LABS: BASO # 0.1 K/uL (0.0-0.2); BASO % 0.6 % (0.0-2.0); EOS % 0.2 % (0.0-4.0); HEMOGLOBIN 14.2 g/dL (12.0-18.0); LYMPH # 1.9 K/uL (1.0-4.3); LYMPH % 12.3 % (20.0-40.0); MEAN CELL VOLUME 85.5 fl (80.0-94.0); MEAN CORPUSCULAR HEMOGLOBIN 28.9 pg (27.0-31.0); MEAN CORPUSCULAR HGB CONC 33.7 g/dL (33.0-37.0); MEAN PLATELET VOLUME 9.5 fl (7.2-11.7); MONO # 0.7 K/uL (0.0-0.8); MONO % 4.4 % (0.0-10.0); NEUT # 12.4 K/uL (1.8-7.0); NEUT % 82.5 % (50.0-75.0); RBC 4.93 Mil/uL (4.40-5.90); RED CELL DISTRIBUTION WIDTH 14.4 % (11.5-14.5); WHITE BLOOD COUNT 15.1 K/uL (4.8-10.8)
[2017-12-11 10:38] LABS: CALCIUM 9.3 mg/dL (8.4-10.2); GFR AFRICAN-AMERICAN > 60; GFR NON-AFRICAN AMERICAN > 60
[2017-12-11 10:40] LABS: ALB/GLOB RATIO 1.1 (1.0-2.1); ALT/SGPT 59 U/L (21-72); AST/SGOT 66 U/L (17-59); BLOOD UREA NITROGEN 28 mg/dl (9-20)
[2017-12-11] MEDS ORDERED: Sodium Chloride 0.9% 50 ML IV ONE (11:02)
[2017-12-11] MEDS ORDERED: Iohexol 300 100 ML IJ ONE (11:02)
--- NOTE | 2017-12-11 12:22 | CT ---
PROCEDURE: CT Abdomen and Pelvis with contrast HISTORY: Abdominal pain COMPARISON: 10/31/2016. TECHNIQUE: CT scan of the abdomen and pelvis was performed after administration of intravenous contrast. Oral contrast was not administered. Coronal and sagittal reformatted images were obtained. Contrast dose: 98 cc Omnipaque Radiation dose: Total exam DLP = 2648.50 mGy-cm. This CT exam was performed using one or more of the following dose reduction techniques: Automated exposure control, adjustment of the mA and/or kV according to patient size, and/or use of iterative reconstruction technique. FINDINGS: LOWER THORAX: The visualized lungs are clear. There is a stable 4 mm nodule in the right middle lobe. The previously demonstrated right lower lobe nodule is not well visualized on the current examination. LIVER: Normal in size with homogeneous enhancement. No gross lesion or ductal dilatation. GALLBLADDER AND BILE DUCTS: Surgically absent. PANCREAS: Normal in size with homogeneous enhancement. No gross lesion or ductal dilatation. SPLEEN: Normal in size and appearance. ADRENALS: No discrete nodule. KIDNEYS AND URETERS: Normal in size and with homogeneous enhancement without nephrolithiasis. There is a tiny nonspecific calcification in the right interpolar region. No hydronephrosis. No solid mass. There are simple cysts in both kidneys, the largest in the right interpolar region measures 8.2 x 6.7 cm. VASCULATURE: No aortic aneurysm. BOWEL: The small bowel loops are normal in caliber. The ascending, transverse and proximal descending colon are decompressed. There is left colonic diverticulosis. There is apparent segmental mural thickening in the distal descending and proximal sigmoid colon. APPENDIX: Normal appendix. PERITONEUM: No free fluid. No free air. LYMPH NODES: No enlarged lymph nodes. BLADDER: Moderate circumferential mural thickening in the urinary bladder wall. REPRODUCTIVE: There is severe enlargement of the prostate gland with median lobe hypertrophy indenting on the base of the urinary bladder. BONES: No acute fracture. Dextroscoliosis in the lumbar spine and diffuse bone demineralization with multilevel degenerative changes. There is stable appearance of hemangioma in the an 1 vertebral body with OTHER FINDINGS: There is a small sliding hiatal hernia. IMPRESSION: 1. Left colonic diverticulosis. Apparent mild mural thickening in the distal descending and proximal sigmoid colon is nonspecific and could be related to underdistention however early acute diverticulitis cannot be entirely excluded. No micro perforation or abscess. 2. Simple renal cysts, the largest in the right interpolar region measures 8.2 x 6.7 cm.
[2017-12-11] MEDS ORDERED: metroNIDAZOLE 500mg/100ml NS 100 ML IVPB STA (12:55)
[2017-12-11] MEDS ORDERED: Ciprofloxacin 400mg/200ml D5W 400 MG/200 ML BAG IVPB STA (12:55)
[2017-12-11] MEDS ORDERED: Ciprofloxacin 400mg/200ml D5W 400 MG/200 ML BAG IVPB ONE (13:14)
[2017-12-11] MEDS ORDERED: metroNIDAZOLE 500mg/100ml NS 100 ML IVPB ONE (14:40)
[2017-12-11] MEDS: Dextrose 5%/Lactated Ringer's 1,000 ML IV SCH (20:22)
[2017-12-11] MEDS: Ciprofloxacin 400mg/200ml D5W 400 MG/200 ML BAG IVPB SCH (20:24)
[2017-12-12] MEDS: metroNIDAZOLE 500mg/100ml NS 100 ML IVPB SCH ×3 (01:26→16:28)
[2017-12-12] MEDS: Dextrose 5%/Lactated Ringer's 1,000 ML IV SCH (04:00)
[2017-12-12] MEDS: Ciprofloxacin 400mg/200ml D5W 400 MG/200 ML BAG IVPB SCH ×2 (08:35→22:09)
--- NOTE | 2017-12-12 13:14 | CP.PCM.HP ---
History of Present Illness - History of Present Illness History of Present Illness: This is a 77 y/o male with hx of HTn was admitted for progressive worsening of left sided and pain. He denies any fever vomiting or diarrhea. he had not had a bm since the onset of abd pain. He denies having any episode in the past No recent colonoscopy Has HTN and hyperlipidemia and BPH which has been well controlled with medications. Present on Admission - Present on Admission Any Indicators Present on Admission: No History of DVT/PE: No History of Uncontrolled Diabetes: No Urinary Catheter: No Decubitus Ulcer Present: No Past Patient History - Past Medical History & Family History Past Medical History?: Yes - Past Social History Smoking Status: Former Smoker - CARDIAC Hx Cardiac Disorders: Yes (CHF,HTN, High cholesterol) - PULMONARY Hx Respiratory Disorders: No - NEUROLOGICAL Hx Neurological Disorder: No - HEENT Hx HEENT Problems: No - RENAL Hx Chronic Kidney Disease: No - ENDOCRINE/METABOLIC Hx Endocrine Disorders: No - HEMATOLOGICAL/ONCOLOGICAL Hx Human Immunodeficiency Virus (HIV): No - INTEGUMENTARY Hx Dermatological Problems: No Other/Comment: sun foote noted to face forehead and ext - MUSCULOSKELETAL/RHEUMATOLOGICAL Hx Musculoskeletal Disorders: Yes (arthritis) Hx Falls: No - GASTROINTESTINAL Hx Gastrointestinal Disorders: No - GENITOURINARY/GYNECOLOGICAL Hx Genitourinary Disorders: No Other/Comment: denies - PSYCHIATRIC Hx Psychophysiologic Disorder: No Hx Substance Use: No - SURGICAL HISTORY Hx Cholecystectomy: Yes - ANESTHESIA Hx Anesthesia: Yes Hx Anesthesia Reactions: No Meds Allergies/Adverse Reactions: Allergies Allergy/AdvReac Type Severity Reaction Status Date / Time No Known Allergies Allergy Verified 12/11/17 09:29 Physical Exam - Head Exam Head Exam: NORMAL INSPECTION - Eye Exam Eye Exam: Normal appearance - ENT Exam ENT Exam: Mucous Membranes Moist - Respiratory Exam Respiratory Exam: Clear to Auscultation Bilateral - GI/Abdominal Exam GI & Abdominal Exam: Normal Bowel Sounds - Neurological Exam Neurological exam: CN II-XII Intact, Oriented x3 Results - Vital Signs Recent Vital Signs: Last Vital Signs Temp 99.1 F 12/12/17 08:15 Pulse 80 12/12/17 08:25 Resp 20 12/12/17 08:15 BP 137/67 12/12/17 08:25 Pulse Ox 95 12/12/17 08:15 - Labs Result Diagrams: 12/12/17 14:39 12/12/17 14:39 Assessment & Plan (1) Diverticulitis Status: Acute (2) BPH (benign prostatic hyperplasia) Status: Acute (3) Hyperlipidemia Status: Acute (4) Hypertension Status: Acute - Assessment and Plan (Free Text) Plan: Keep NPO antacid hydrate check labs IV antibiotics repeat CBC in am.
[2017-12-12 15:03] LABS: BASO # 0.1 K/uL (0.0-0.2); EOS # 0.1 K/uL (0.0-0.7); EOS % 1.2 % (0.0-4.0); HEMOGLOBIN 13.1 g/dL (12.0-18.0); LYMPH # 1.9 K/uL (1.0-4.3); LYMPH % 15.6 % (20.0-40.0); MEAN CELL VOLUME 85.9 fl (80.0-94.0); MEAN CORPUSCULAR HEMOGLOBIN 28.8 pg (27.0-31.0); MEAN CORPUSCULAR HGB CONC 33.6 g/dL (33.0-37.0); MEAN PLATELET VOLUME 9.2 fl (7.2-11.7); MONO # 0.9 K/uL (0.0-0.8); MONO % 7.6 % (0.0-10.0); NEUT % 74.6 % (50.0-75.0); NRBC % 0.2 % (0.0-0.0); RBC 4.55 Mil/uL (4.40-5.90); RED CELL DISTRIBUTION WIDTH 14.5 % (11.5-14.5)
[2017-12-12 15:21] LABS: BLOOD UREA NITROGEN 13 mg/dl (9-20); GFR AFRICAN-AMERICAN > 60; GFR NON-AFRICAN AMERICAN > 60
[2017-12-12 15:22] LABS: ALB/GLOB RATIO 1.1 (1.0-2.1); ALBUMIN 3.8 g/dL (3.5-5.0); ALT/SGPT 48 U/L (21-72); AST/SGOT 29 U/L (17-59); CALCIUM 8.9 mg/dL (8.4-10.2)
[2017-12-12] MEDS ORDERED: Potassium Chloride 20 mEq ER Tab PO ONE (15:35)
--- NOTE | 2017-12-13 00:04 | CP.PCM.PN ---
Subjective - Date & Time of Evaluation Date of Evaluation: 12/12/17 Time of Evaluation: 14:00 - Subjective Subjective: Patient has some vague right mid and upper abd pain. Has no fever Had no bm for the past 4 days. Noted decrease in WBC Currently on Cipro and flagyl. Objective - Vital Signs/Intake and Output Vital Signs (last 24 hours): Temp Pulse Resp BP Pulse Ox 98.3 F 82 18 119/70 94 L 12/12/17 17:00 12/12/17 17:00 12/12/17 17:00 12/12/17 17:00 12/12/17 17:00 - Medications Medications: Current Medications Alprazolam (Xanax) 2 mg PO DAILY PRN PRN Reason: Anxiety Amlodipine Besylate (Norvasc) 10 mg PO DAILY [facility] Last Admin: 12/12/17 08:20 Dose: 10 mg Aspirin (Ecotrin) 81 mg PO DAILY [facility] Last Admin: 12/12/17 08:20 Dose: 81 mg Fluticasone Propionate (Flonase) 1 spr DELIA BID [facility] Last Admin: 12/12/17 16:29 Dose: 1 spr Hydrochlorothiazide (Microzide) 12.5 mg PO DAILY [facility] Last Admin: 12/12/17 08:20 Dose: 12.5 mg Metronidazole (Flagyl 500mg/100ml Ns) 100 mls @ 100 mls/hr IVPB Q8 [facility] PRN Reason: Protocol Stop: 12/17/17 00:00 Last Admin: 12/12/17 16:28 Dose: 100 mls/hr Ciprofloxacin (Cipro 400mg/200ml Dsw) 400 mg in 200 mls @ 200 mls/hr IVPB Q12 [facility] PRN Reason: Protocol Last Admin: 12/12/17 22:09 Dose: 200 mls/hr Ibuprofen (Motrin Tab) 400 mg PO Q8 PRN PRN Reason: Pain, Mild (1-3) Last Admin: 12/12/17 12:26 Dose: 400 mg Lactulose (Enulose) 20 gm PO DAILY PRN PRN Reason: Constipation Last Admin: 12/12/17 13:45 Dose: 20 gm Lisinopril (Zestril) 40 mg PO DAILY [facility] Last Admin: 12/12/17 08:25 Dose: 40 mg Pantoprazole Sodium (Protonix Inj) 40 mg IVP DAILY [facility] Last Admin: 12/12/17 08:22 Dose: 40 mg Tamsulosin HCl (Flomax) 0.4 mg PO DAILY [facility] Last Admin: 12/12/17 08:20 Dose: 0.4 mg - Labs Labs: 12/12/17 14:39 12/12/17 14:39 - Head Exam Head Exam: NORMAL INSPECTION - Eye Exam Eye Exam: Normal appearance - ENT Exam ENT Exam: Mucous Membranes Moist - Respiratory Exam Respiratory Exam: Clear to Ausculation Bilateral - Cardiovascular Exam Cardiovascular Exam: REGULAR RHYTHM - GI/Abdominal Exam GI & Abdominal Exam: Tenderness, Normal Bowel Sounds - Neurological Exam Neurological Exam: Awake, Oriented x3 Assessment and Plan (1) Diverticulitis Status: Acute (2) BPH (benign prostatic hyperplasia) Status: Acute (3) Hyperlipidemia Status: Acute (4) Hypertension Status: Acute - Assessment and Plan (Free Text) Plan: start clear liquids cont meds repeat CBC in am Con ttx. Give one dose of lactulose. DC plans for am.
[2017-12-13] MEDS: metroNIDAZOLE 500mg/100ml NS 100 ML IVPB SCH ×2 (01:37→09:40)
[2017-12-13 06:25] LABS: HEMOGLOBIN 13.5 g/dL (12.0-18.0); MEAN CORPUSCULAR HEMOGLOBIN 28.9 pg (27.0-31.0); MEAN CORPUSCULAR HGB CONC 33.6 g/dL (33.0-37.0); RBC 4.67 Mil/uL (4.40-5.90); RED CELL DISTRIBUTION WIDTH 14.6 % (11.5-14.5)
[2017-12-13 06:38] LABS: ALBUMIN 3.7 g/dL (3.5-5.0); ALT/SGPT 48 U/L (21-72); AST/SGOT 30 U/L (17-59); BLOOD UREA NITROGEN 15 mg/dl (9-20); CALCIUM 9.1 mg/dL (8.4-10.2); GFR AFRICAN-AMERICAN > 60; GFR NON-AFRICAN AMERICAN > 60
[2017-12-13 08:23] VITALS: BP 144/72; PULSE 80; RESP 20; TEMP 98; O2SAT 98
[2017-12-13] MEDS ORDERED: Hydrocortisone 2.5% (Rectal) CREAM PR SCH (09:00)
[2017-12-13] MEDS: Ciprofloxacin 400mg/200ml D5W 400 MG/200 ML BAG IVPB SCH (11:00)
--- NOTE | 2017-12-13 13:46 | CP.PCM.DIS ---
Provider - Provider Date of Admission: 12/11/17 13:06 Attending physician: Iggy Gutierrez MD Time Spent in preparation of Discharge (in minutes): 30 Diagnosis - Discharge Diagnosis (1) Diverticulitis Status: Acute (2) BPH (benign prostatic hyperplasia) Status: Acute (3) Hyperlipidemia Status: Acute (4) Hypertension Status: Acute Hospital Course - Lab Results Lab Results: Micro Results 12/11/17 13:30 Blood Blood Culture - Preliminary NO GROWTH AFTER 48 HOURS Most Recent Lab Values WBC 9.0 K/uL (4.8-10.8) 12/13/17 05:50 RBC 4.67 Mil/uL (4.40-5.90) 12/13/17 05:50 Hgb 13.5 g/dL (12.0-18.0) 12/13/17 05:50 Hct 40.2 % (35.0-51.0) 12/13/17 05:50 MCV 86.0 fl (80.0-94.0) 12/13/17 05:50 MCH 28.9 pg (27.0-31.0) 12/13/17 05:50 MCHC 33.6 g/dL (33.0-37.0) 12/13/17 05:50 RDW 14.6 % (11.5-14.5) H 12/13/17 05:50 Plt Count 132 K/uL (130-400) 12/13/17 05:50 MPV 9.2 fl (7.2-11.7) 12/12/17 14:39 Neut % (Auto) 74.6 % (50.0-75.0) 12/12/17 14:39 Lymph % (Auto) 15.6 % (20.0-40.0) L 12/12/17 14:39 [place] % (Auto) 7.6 % (0.0-10.0) 12/12/17 14:39 Eos % (Auto) 1.2 % (0.0-4.0) 12/12/17 14:39 Baso % (Auto) 1.0 % (0.0-2.0) 12/12/17 14:39 Neut # (Auto) 9.0 K/uL (1.8-7.0) H 12/12/17 14:39 Lymph # (Auto) 1.9 K/uL (1.0-4.3) 12/12/17 14:39 [place] # (Auto) 0.9 K/uL (0.0-0.8) H 12/12/17 14:39 Eos # (Auto) 0.1 K/uL (0.0-0.7) 12/12/17 14:39 Baso # (Auto) 0.1 K/uL (0.0-0.2) 12/12/17 14:39 Sodium 143 mmol/l (132-148) 12/13/17 05:50 Potassium 3.3 MMOL/L (3.6-5.0) L 12/13/17 05:50 Chloride 103 mmol/L (98-107) 12/13/17 05:50 Carbon Dioxide 27 mmol/L (22-30) 12/13/17 05:50 Anion Gap 16 (10-20) 12/13/17 05:50 BUN 15 mg/dl (9-20) 12/13/17 05:50 Creatinine 1.1 mg/dl (0.8-1.5) 12/13/17 05:50 Est GFR ( Amer) > 60 12/13/17 05:50 Est GFR (Non-Af Amer) > 60 12/13/17 05:50 Random Glucose 97 mg/dL (75-110) 12/13/17 05:50 Hemoglobin A1c 5.4 % (4.2-6.5) 12/12/17 18:00 Calcium 9.1 mg/dL (8.4-10.2) 12/13/17 05:50 Total Bilirubin 0.7 mg/dl (0.2-1.3) 12/13/17 05:50 AST 30 U/L (17-59) 12/13/17 05:50 ALT 48 U/L (21-72) 12/13/17 05:50 Alkaline Phosphatase 75 U/L (38-126) 12/13/17 05:50 Total Protein 7.2 G/DL (6.3-8.2) 12/13/17 05:50 Albumin 3.7 g/dL (3.5-5.0) 12/13/17 05:50 Globulin 3.5 gm/dL (2.2-3.9) 12/13/17 05:50 Albumin/Globulin Ratio 1.0 (1.0-2.1) 12/13/17 05:50 - Hospital Course Hospital Course: This is a 77 y/o male with hx of diverticuloses, HTN and BPH was admitted for new onset of diverticulitis. He claims to have vague abd pain in the LLQ area He had no fever but pain was persistent and worsened hence sought ER eval. He was placed on NPO and given hydration. He was started on IV cipro and flagyl. He responded well and diet was advanced. He was sent home on Cipro and flagyl and advised follow up with PMD. Discharge Exam - Head Exam Head Exam: NORMAL INSPECTION - Eye Exam Eye Exam: Normal appearance - Respiratory Exam Respiratory Exam: NORMAL BREATHING PATTERN - Cardiovascular Exam Cardiovascular Exam: REGULAR RHYTHM - GI/Abdominal Exam GI & Abdominal Exam: Normal Bowel Sounds - Neurological Exam Neurological exam: CN II-XII Intact, Reflexes Normal - Psychiatric Exam Psychiatric exam: Normal Mood Discharge Plan - Follow Up Plan Condition: FAIR Disposition: HOME/ ROUTINE Instructions: High Potassium Diet Additional Instructions: advised about specific foods to avoid Rx for Cipro and flagyl follow up with PMD in 2 weeks
== END 2017-12-13 16:02 | disposition home or self-care (01) | DRG 392 ==
LOC: H.ER 09:19 → H.ERHOLD 13:06 → H.MEDSURG1 15:14
PROVIDERS: ADMIT Family Medicine; ATTEND Family Medicine
DX: K57.92 Diverticulitis of intestine, part unspecified, without perforation or abscess without bleeding (principal); I10 Essential (primary) hypertension; E78.5 Hyperlipidemia, unspecified; E78.00 Pure hypercholesterolemia, unspecified; N40.0 Benign prostatic hyperplasia without lower urinary tract symptoms; Z87.891 Personal history of nicotine dependence; M46.90 Unspecified inflammatory spondylopathy, site unspecified

== ENCOUNTER 2018-04-05 13:41 | Emergency (ER) | payer MEDICARE ==
[2018-04-05 13:41] VITALS: BMI 29.0
[2018-04-05 13:48] VITALS: TEMP 98.3
--- NOTE | 2018-04-05 15:24 | ED PDOC ---
HPI: Back Time Seen by Provider: 04/05/18 14:30 Chief Complaint (Nursing): Back Pain Chief Complaint (Provider): Back Pain History Per: Patient Onset/Duration Of Symptoms: Hrs (x1) Current Symptoms Are (Timing): Still Present Quality Of Discomfort: "Pain" Additional Complaint(s): 78 year old male with a history of hypertension, CHF and asthma presents to the ED for evaluation of neck and back pain. Earlier today he tripped on a rug and landed on the side of a door, striking his head a few times on the way down. He has a small wound on his lower back. Notes that pain is ongoing from before incident. [facility]: [facility] - Risk Factors AAA Risk Factors: Pos: Hypertension Past Medical History Reviewed: Historical Data, Nursing Documentation, Vital Signs Vital Signs: Last Vital Signs Temp 98.3 F 04/05/18 13:45 Pulse 72 04/05/18 13:45 Resp 16 04/05/18 13:45 BP 132/59 L 04/05/18 13:45 Pulse Ox 96 04/05/18 13:45 - Medical History PMH: Arthritis (spine), Back Problems, CHF, HTN, Hyperlipidemia Denies: HIV, Chronic Kidney Disease - Surgical History Surgical History: Cholecystectomy - Family History Family History: States: Unknown Family Hx - Home Medications Home Medications: Ambulatory Orders Medication Instructions Recorded Tamsulosin [Flomax] 0.4 mg PO DAILY 08/04/14 Amlodipine Besylate 10 mg PO DAILY 08/08/14 Aspirin [Ecotrin] 81 mg PO DAILY 08/08/14 Hydrochlorothiazide 12.5 mg PO DAILY 08/08/14 Lisinopril 40 mg PO DAILY 08/08/14 ALPRAZolam [Xanax] 2 mg PO HS 12/11/17 ALPRAZolam [Xanax] 2 mg PO DAILY PRN tab 12/13/17 Aspirin [Ecotrin] 81 mg PO DAILY tabec 12/13/17 Fluticasone Propionate [Flonase] 1 spr DELIA BID #0 bottle 12/13/17 Lisinopril [Zestril] 40 mg PO DAILY tab 12/13/17 Pantoprazole [Protonix Inj] 40 mg IVP DAILY vial 12/13/17 amLODIPine [Norvasc] 10 mg PO DAILY tab 12/13/17 - Allergies Allergies/Adverse Reactions: Allergies Allergy/AdvReac Type Severity Reaction Status Date / Time No Known Allergies Allergy Verified 04/05/18 13:45 Review of Systems ROS Statement: Except As Marked, All Systems Reviewed And Found Negative Musculoskeletal: Positive for: Neck Pain, Back Pain Physical Exam - Reviewed Nursing Documentation Reviewed: Yes Vital Signs Reviewed: Yes - Physical Exam Appears: Positive for: Non-toxic, No Acute Distress Head Exam: Positive for: ATRAUMATIC, NORMAL INSPECTION, NORMOCEPHALIC Skin: Positive for: Normal Color, Warm, Dry Eye Exam: Positive for: EOMI, Normal appearance, PERRL Neck: Positive for: Pain On Movement Of Neck (paracervical tenderness) Cardiovascular/Chest: Positive for: Regular Rate, Rhythm, Chest Non Tender. Negative for: Murmur Respiratory: Positive for: Normal Breath Sounds. Negative for: Respiratory Distress Gastrointestinal/Abdominal: Positive for: Normal Exam, Soft. Negative for: Tenderness Back: Positive for: Other (3 cm abrasion noted). Negative for: L CVA Tenderness , R CVA Tenderness, Vertebral Tenderness (thoracic and lumbar tenderness) Neurologic/Psych: Positive for: Alert, Oriented (x 3). Negative for: Motor/ Sensory Deficits - ECG O2 Sat by Pulse Oximetry: 96 (RA) Pulse Ox Interpretation: Normal Medical Decision Making Medical Decision Makin;33 --CT C-spine --CT Head 16:11 CT Head FINDINGS: HEMORRHAGE: No intracranial hemorrhage. BRAIN: There are mild chronic microangiopathic changes. There is no mass, mass effect or abnormal extra-axial fluid collection. There is no territorial infarction. The midline sagittal structures are normal. VENTRICLES: There is moderate age-related global parenchymal volume loss and proportionate enlargement of the ventricles and cortical sulci. CALVARIUM: There is no calvarial fracture or extracranial soft tissue swelling. PARANASAL SINUSES: Predominantly clear. MASTOID AIR CELLS: Predominantly clear. OTHER FINDINGS: None. IMPRESSION: No acute intracranial abnormality. Mild chronic microangiopathic changes and moderate age-related global parenchymal volume loss. C-Spine FINDINGS: VERTEBRAE: There is normal alignment of the cervical vertebral bodies. There is straightening of the cervical spine with loss of normal cervical lordosis. There is no acute fracture, spondylolysis or spondylolisthesis. The craniocervical junction is normal. The atlantoaxial joint is normal. DISCS/SPINAL CANAL/NEURAL FORAMINA: There is mild multilevel degenerative disc disease due to combination of disc osteophyte complexes, uncovertebral joint hypertrophy and multilevel facet arthropathy, worse at C5-6 and C6-7 without central spinal canal stenosis. PARASPINAL SOFT TISSUES: The paraspinous soft tissues are normal. OTHER FINDINGS: No prevertebral soft tissue thickening. No apical pneumothorax. IMPRESSION: No acute fracture or traumatic anterior listhesis. Scribe Attestation: Documented by Clau Quarles, acting as a scribe for Angel Shelley PA-C Provider Scribe Attestation: All medical record entries made by the Scribe were at my direction and personally dictated by me. I have reviewed the chart and agree that the record accurately reflects my personal performance of the history, physical exam, medical decision making, and the department course for this patient. I have also personally directed, reviewed, and agree with the discharge instructions and disposition. Disposition - Clinical Impression Clinical Impression: Head injury, Neck injury - Patient ED Disposition Is Patient to be Admitted: No - Disposition Disposition: Routine/Home Disposition Time: 16:26 Condition: FAIR Instructions: Closed Head Injury (DC)
--- NOTE | 2018-04-05 16:08 | CT ---
Date of service: 04/05/2018 PROCEDURE: CT HEAD WITHOUT CONTRAST. HISTORY: Head injury COMPARISON: 04/10/2012. TECHNIQUE: Axial computed tomography images were obtained through the head/brain without intravenous contrast. Radiation dose: Total exam DLP = 834.21 mGy-cm. This CT exam was performed using one or more of the following dose reduction techniques: Automated exposure control, adjustment of the mA and/or kV according to patient size, and/or use of iterative reconstruction technique. FINDINGS: HEMORRHAGE: No intracranial hemorrhage. BRAIN: There are mild chronic microangiopathic changes. There is no mass, mass effect or abnormal extra-axial fluid collection. There is no territorial infarction. The midline sagittal structures are normal. VENTRICLES: There is moderate age-related global parenchymal volume loss and proportionate enlargement of the ventricles and cortical sulci. CALVARIUM: There is no calvarial fracture or extracranial soft tissue swelling. PARANASAL SINUSES: Predominantly clear. MASTOID AIR CELLS: Predominantly clear. OTHER FINDINGS: None. IMPRESSION: No acute intracranial abnormality. Mild chronic microangiopathic changes and moderate age-related global parenchymal volume loss.
--- NOTE | 2018-04-05 16:12 | CT ---
Date of service: 04/05/2018 PROCEDURE: CT Cervical Spine without contrast HISTORY: Injury COMPARISON: None available. TECHNIQUE: Axial computed tomography images were obtained of the cervical spine without the use of intravenous contrast. Coronal and sagittal reformatted images were created and reviewed. Radiation dose: Total exam DLP = 435.50 mGy-cm. This CT exam was performed using one or more of the following dose reduction techniques: Automated exposure control, adjustment of the mA and/or kV according to patient size, and/or use of iterative reconstruction technique. FINDINGS: VERTEBRAE: There is normal alignment of the cervical vertebral bodies. There is straightening of the cervical spine with loss of normal cervical lordosis. There is no acute fracture, spondylolysis or spondylolisthesis. The craniocervical junction is normal. The atlantoaxial joint is normal. DISCS/SPINAL CANAL/NEURAL FORAMINA: There is mild multilevel degenerative disc disease due to combination of disc osteophyte complexes, uncovertebral joint hypertrophy and multilevel facet arthropathy, worse at C5-6 and C6-7 without central spinal canal stenosis. PARASPINAL SOFT TISSUES: The paraspinous soft tissues are normal. OTHER FINDINGS: No prevertebral soft tissue thickening. No apical pneumothorax. IMPRESSION: No acute fracture or traumatic anterior listhesis.
[2018-04-05 16:37] VITALS: BP 148/72; PULSE 67; RESP 18; O2SAT 97
== END 2018-04-05 16:42 | disposition home or self-care (01) ==
LOC: H.ER 13:41
DX: S16.1XXA Strain of muscle, fascia and tendon at neck level, initial encounter (principal); S09.90XA Unspecified injury of head, initial encounter; W19.XXXA Unspecified fall, initial encounter; Y92.89 Other specified places as the place of occurrence of the external cause; E78.5 Hyperlipidemia, unspecified; I11.0 Hypertensive heart disease with heart failure; I50.9 Heart failure, unspecified

== ENCOUNTER 2018-06-08 09:00 | Inpatient (IN) | payer MEDICARE ==
[2018-06-08 09:00] VITALS: BMI 29.0
[2018-06-08] MEDS ORDERED: Sodium Chloride 0.9% 1,000 ML IV STA (09:24)
--- NOTE | 2018-06-08 09:37 | ED PDOC ---
HPI: Abdomen Time Seen by Provider: 06/08/18 09:12 Chief Complaint (Nursing): Abdominal Pain Chief Complaint (Provider): Abdominal Pain History Per: Patient History/Exam Limitations: no limitations Onset/Duration Of Symptoms: Days (x1) Current Symptoms Are (Timing): Still Present Location Of Pain/Discomfort: RUQ Associated Symptoms: Nausea. denies: Vomiting, Diarrhea Additional Complaint(s): Mateo Botello is a 78 year old male with a past medical history of hypertension and hypercholesterolemia who is presenting to the ED for evaluation of right sided abdominal pain associated with nausea onset last night. Patient states that he had a bowel movement yesterday but felt like he had to go more so used a rectal suppository and had a small bowel movement this morning. He states that he is passing flatus and reports that within the last year he had a cholecystectomy and was diagnosed with appendicitis and treated with antibiotics. Patient denies taking any medications prior to arrival and denies any diarrhea. [facility] Past Medical History Reviewed: Historical Data, Nursing Documentation, Vital Signs Vital Signs: Last Vital Signs Temp 98.5 F 06/08/18 09:01 Pulse 75 06/08/18 09:01 Resp 19 06/08/18 09:01 BP 146/67 06/08/18 09:01 Pulse Ox 97 06/08/18 09:01 - Medical History PMH: Arthritis (spine), Back Problems, CHF, HTN, Hyperlipidemia Denies: HIV, Chronic Kidney Disease - Surgical History Surgical History: Cholecystectomy - Family History Family History: States: Unknown Family Hx - Social History Current smoker - smoking cessation education provided: No Ex-Smoker (has not smoked in the last 12 months): Yes Alcohol: None Drugs: Denies - Home Medications Home Medications: Ambulatory Orders Medication Instructions Recorded Albuterol Sulfate [Ventolin Hfa] 2 puff IH Q6 PRN 06/08/18 Alprazolam [Xanax] 1 mg PO HS 06/08/18 Alprazolam [Xanax] 1 mg PO HS PRN 06/08/18 Aspirin [Ecotrin] 81 mg PO DAILY 06/08/18 Fluticasone Nasal [Flonase] 1 spray DELIA Q12 PRN 06/08/18 Lisinopril [Zestril] 40 mg PO QPM 06/08/18 Metoprolol Succinate XL [Toprol XL] 200 mg PO DAILY 06/08/18 Tamsulosin [Flomax] 0.4 mg PO DAILY 06/08/18 Tiotropium [Spiriva] 18 mcg IH DAILY 06/08/18 amLODIPine [Norvasc] 10 mg PO DAILY 06/08/18 hydroCHLOROthiazide [Microzide] 12.5 mg PO DAILY 06/08/18 - Allergies Allergies/Adverse Reactions: Allergies Allergy/AdvReac Type Severity Reaction Status Date / Time No Known Allergies Allergy Verified 06/08/18 09:24 Review of Systems ROS Statement: Except As Marked, All Systems Reviewed And Found Negative Gastrointestinal: Positive for: Nausea, Abdominal Pain. Negative for: Vomiting, Diarrhea Physical Exam - Reviewed Nursing Documentation Reviewed: Yes Vital Signs Reviewed: Yes - Physical Exam Appears: Positive for: Non-toxic, In Acute Distress (mild painful) Head Exam: Positive for: ATRAUMATIC, NORMAL INSPECTION, NORMOCEPHALIC Skin: Positive for: Normal Color, Warm, DRY Eye Exam: Positive for: EOMI, Normal appearance, PERRL ENT: Positive for: Normal ENT Inspection Neck: Positive for: Normal, Painless ROM Cardiovascular/Chest: Positive for: Regular Rate, Rhythm. Negative for: Murmur Respiratory: Positive for: Normal Breath Sounds. Negative for: Respiratory Distress Gastrointestinal/Abdominal: Positive for: Soft, Tenderness (right upper quadrant tenderness). Negative for: Mass, Guarding, Rebound Back: Positive for: Normal Inspection. Negative for: L CVA Tenderness, R CVA Tenderness, Vertebral Tenderness Extremity: Positive for: Normal ROM. Negative for: Deformity, Swelling Neurologic/Psych: Positive for: Alert, Oriented. Negative for: Motor/Sensory Deficits - Laboratory Results Result Diagrams: 06/08/18 09:35 06/08/18 09:35 - ECG Interpretation Of ECG: SR @ 69, PVC. O2 Sat by Pulse Oximetry: 97 (RA) Pulse Ox Interpretation: Normal Medical Decision Making Medical Decision Making: Time: 9:21 Plan: --CT Abd/Pelvis --EKG --CMP --Lipase --ED Urine Dipstick --CBC --Coags --Chest X-ray --Morphine 2 mg IV --IV Fluids --Zofran 4 mg IV --Blood Culture --Urinalysis Chest X-Ray: FINDINGS: LUNGS: No active pulmonary disease. PLEURA: No significant pleural effusion identified. No pneumothorax apparent. CARDIOVASCULAR: There is presence of aortic atherosclerotic calcification on x-ray. Normal cardiac size. No pulmonary vascular congestion. OSSEOUS STRUCTURES: Thoracic spondylosis VISUALIZED UPPER ABDOMEN:Normal. OTHER FINDINGS: None. IMPRESSION: No active disease. No interval pathology noted CT Abd/Pelvis: FINDINGS: LOWER THORAX: There is dependent atelectasis in the lung bases. LIVER: Normal in size with homogeneous enhancement. There is diffuse fatty liver. No gross lesion or ductal dilatation. GALLBLADDER AND BILE DUCTS: Surgically absent. PANCREAS: Normal in size with homogeneous enhancement. No gross lesion or ductal dilatation. SPLEEN: Normal in size and appearance. ADRENALS: No discrete nodule. KIDNEYS AND URETERS: Normal in size with homogeneous enhancement. No hydronephrosis. No solid mass. There are stable simple cysts in both kidneys, the largest in the right interpolar region measures 8.3 x 6.3 cm. There is a stable nonspecific parenchymal calcification in the right interpolar region. VASCULATURE: No aortic aneurysm. There are advanced aortic atherosclerotic calcifications. BOWEL: Evaluation of the bowel is limited in the absence of oral contrast. The small bowel loops are normal in caliber. There is scattered left colonic diverticulosis without CT evidence for acute diverticulitis. No bowel wall thickening or obstruction. APPENDIX: The appendix is fluid-filled, distended and measures 12 mm in diameter. There are significant surrounding inflammatory changes in the right lower quadrant fat. No perforation or abscess. PERITONEUM: No free fluid. No free air. LYMPH NODES: No enlarged lymph nodes. BLADDER: Well distended and normal in appearance. REPRODUCTIVE: The prostate gland is enlarged. BONES: No acute fracture. Diffuse bone demineralization and multilevel degenerative changes. OTHER FINDINGS: None. IMPRESSION: Acute uncomplicated appendicitis. No perforation or abscess. Scattered left colonic diverticulosis without CT evidence for acute diverticulitis. Enlarged prostate gland. Please correlate with PSA levels. 12:45 Case discussed with osteopathic resident. Scribe Attestation: Documented by, Naheed Storey acting as a scribe for Ana Cristina Moses MD. Provider Scribe Attestation: All medical record entries made by the Scribe were at my direction and personally dictated by me. I have reviewed the chart and agree that the record accurately reflects my personal performance of the history, physical exam, medical decision making, and the department course for this patient. I have also personally directed, reviewed, and agree with the discharge instructions and disposition. Disposition - Clinical Impression Clinical Impression: Appendicitis - Patient ED Disposition Is Patient to be Admitted: Yes - Disposition Disposition Time: 12:48 Condition: STABLE - Pt Status Changed To: Hospital Disposition Of: Inpatient - Admit Certification Admit to Inpatient:: After my assessment, the patient will require hospitalization for at least two midnights. This is because of the severity of symptoms shown, intensity of services needed, and/or the medical risk in this patient being treated as an outpatient. - POA Present On Arrival: None
[2018-06-08] MEDS ORDERED: Morphine 4 MG/ML VIAL IV STA ×2 (09:50→12:52)
[2018-06-08 09:54] LABS: BASO % 0.3 % (0.0-2.0); EOS % 0.1 % (0.0-4.0); HEMOGLOBIN 12.8 g/dL (12.0-18.0); INR 1.1; LYMPH # 1.2 K/uL (1.0-4.3); LYMPH % 8.7 % (20.0-40.0); MEAN CORPUSCULAR HEMOGLOBIN 28.8 pg (27.0-31.0); MEAN CORPUSCULAR HGB CONC 33.1 g/dL (33.0-37.0); MEAN PLATELET VOLUME 8.3 fl (7.2-11.7); MONO # 0.7 K/uL (0.0-0.8); MONO % 5.1 % (0.0-10.0); NEUT # 11.4 K/uL (1.8-7.0); NEUT % 85.8 % (50.0-75.0); PLATELET COUNT 154 K/uL (130-400); PROTHROMBIN TIME 12.7 Seconds (9.8-13.1); RBC 4.43 Mil/uL (4.40-5.90); RED CELL DISTRIBUTION WIDTH 14.2 % (11.5-14.5); WHITE BLOOD COUNT 13.3 K/uL (4.8-10.8)
[2018-06-08 09:56] LABS: PARTIAL THROMBOPLASTIN TIME 34.9 Seconds (25.6-37.1)
[2018-06-08] MEDS ORDERED: Morphine 4 MG/ML VIAL ONE ×2 (09:57→13:19)
[2018-06-08 10:00] LABS: ALB/GLOB RATIO 1.2 (1.0-2.1); ALBUMIN 4.1 g/dL (3.5-5.0); ALT/SGPT 35 U/L (21-72); AST/SGOT 26 U/L (17-59); BLOOD UREA NITROGEN 18 mg/dl (9-20); GFR NON-AFRICAN AMERICAN > 60; LIPASE 58 U/L (23-300)
--- NOTE | 2018-06-08 10:00 | RAD ---
Date of service: 06/08/2018 HISTORY: Abd pain COMPARISON: 02/17/2017 TECHNIQUE: Chest PA and lateral FINDINGS: LUNGS: No active pulmonary disease. PLEURA: No significant pleural effusion identified. No pneumothorax apparent. CARDIOVASCULAR: There is presence of aortic atherosclerotic calcification on x-ray. Normal cardiac size. No pulmonary vascular congestion. OSSEOUS STRUCTURES: Thoracic spondylosis VISUALIZED UPPER ABDOMEN: Normal. OTHER FINDINGS: None. IMPRESSION: No active disease. No interval pathology noted
[2018-06-08 10:29] LABS: LYMPHOCYTE 7 % (20-50); MONOCYTE 2 % (0-10); NEUTROPHIL 89 % (42-75); REACTIVE LYMPHOCYTES 2 % (0-0); TOTAL CELLS COUNTED 100
[2018-06-08 10:31] LABS: PLATELET ESTIMATE NORMAL (NORMAL)
[2018-06-08] MEDS ORDERED: Iohexol 300 100 ML IJ ONE (10:33)
[2018-06-08] MEDS ORDERED: Sodium Chloride 0.9% 50 ML IV ONE (10:33)
[2018-06-08] MEDS ORDERED: Potassium Chloride 20 mEq ER Tab PO STA (11:06)
[2018-06-08] MEDS ORDERED: Potassium Chloride 20 mEq ER Tab PO ONE (11:47)
[2018-06-08 12:22] LABS: URINE BILIRUBIN NEGATIVE (NEGATIVE); URINE BLOOD NEGATIVE (NEGATIVE); URINE CLARITY CLEAR (Clear); URINE COLOR YELLOW (YELLOW); URINE GLUCOSE (UA) NEG (Normal); URINE LEUKOCYTE ESTERASE NEG Leu/uL (Negative); URINE PROTEIN 30 mg/dL (NEGATIVE); URINE UROBILINOGEN 0.2-1.0 mg/dL (0.2-1.0)
[2018-06-08] MEDS ORDERED: Piperacillin/Tazobact 4.5 GM in Sodium Chloride 0.9% 100 ML IVPB STA (12:23)
--- NOTE | 2018-06-08 12:27 | CT ---
Date of service: 06/08/2018 PROCEDURE: CT Abdomen and Pelvis with contrast HISTORY: RUQ pain COMPARISON: 12/11/2017 TECHNIQUE: CT scan of the abdomen and pelvis was performed after administration of intravenous contrast. Oral contrast was not administered. Coronal and sagittal reformatted images were obtained. Contrast dose: Radiation dose: Total exam DLP = 0.0 mGy-cm. This CT exam was performed using one or more of the following dose reduction techniques: Automated exposure control, adjustment of the mA and/or kV according to patient size, and/or use of iterative reconstruction technique. FINDINGS: LOWER THORAX: There is dependent atelectasis in the lung bases. LIVER: Normal in size with homogeneous enhancement. There is diffuse fatty liver. No gross lesion or ductal dilatation. GALLBLADDER AND BILE DUCTS: Surgically absent. PANCREAS: Normal in size with homogeneous enhancement. No gross lesion or ductal dilatation. SPLEEN: Normal in size and appearance. ADRENALS: No discrete nodule. KIDNEYS AND URETERS: Normal in size with homogeneous enhancement. No hydronephrosis. No solid mass. There are stable simple cysts in both kidneys, the largest in the right interpolar region measures 8.3 x 6.3 cm. There is a stable nonspecific parenchymal calcification in the right interpolar region. VASCULATURE: No aortic aneurysm. There are advanced aortic atherosclerotic calcifications. BOWEL: Evaluation of the bowel is limited in the absence of oral contrast. The small bowel loops are normal in caliber. There is scattered left colonic diverticulosis without CT evidence for acute diverticulitis. No bowel wall thickening or obstruction. APPENDIX: The appendix is fluid-filled, distended and measures 12 mm in diameter. There are significant surrounding inflammatory changes in the right lower quadrant fat. No perforation or abscess. PERITONEUM: No free fluid. No free air. LYMPH NODES: No enlarged lymph nodes. BLADDER: Well distended and normal in appearance. REPRODUCTIVE: The prostate gland is enlarged. BONES: No acute fracture. Diffuse bone demineralization and multilevel degenerative changes. OTHER FINDINGS: None. IMPRESSION: Acute uncomplicated appendicitis. No perforation or abscess. Scattered left colonic diverticulosis without CT evidence for acute diverticulitis. Enlarged prostate gland. Please correlate with PSA levels. Important findings were discussed with Dr. Ana Cristina Fritz in the ER on 06/08/2018 at 12:25 p.m.
--- NOTE | 2018-06-08 16:04 | CARD ---
APPROVED REPORT Date of service: 06/08/2018 EKG Measurement Heart [id number] <Conclusion> Sinus rhythm with occasional premature ventricular complexes Minimal voltage criteria for LVH, may be normal variant Borderline ECG
--- NOTE | 2018-06-08 17:26 | CP.PCM.CON ---
<Annita Dillon - Last Filed: 06/08/18 17:35> History of Present Illness - History of Present Illness History of Present Illness: General Surgery Consult note for Dr. Clemons Patient is a 78 yr old male PMH HTN HLD CHF diverticulitis and prior appendicitis treated with antibiotics at the [place] last year presents to [facility] ED with new onset constant sharp RUQ pain this am associated with n/v x 2. He is resting comfortably in bed in no acute distress. He denies radiation of the pain, alleviating/aggravating factors or association with eating. Patient denies associated BHAKTA, CP, SOB, fevers/chills, dysuria, stool changes and extremity pain or weakness. Last normal BM was this AM. PMH: HTN HLD CHF diverticulitis and prior appendicitis PSH: cholecystectomy All: nkda Social former tobacco and ETOH abuse quit approximately 17 years ago, denies drug use Review of Systems - Review of Systems All systems: reviewed and no additional remarkable complaints except (as per HPI) Past Patient History - Past Medical History & Family History Past Medical History?: Yes - Past Social History Alcohol: None Drugs: Denies - CARDIAC Hx Congestive Heart Failure: Yes Hx Hypertension: Yes - PULMONARY Hx Respiratory Disorders: No - NEUROLOGICAL Hx Neurological Disorder: No - HEENT Hx HEENT Problems: No - RENAL Hx Chronic Kidney Disease: No - ENDOCRINE/METABOLIC Hx Endocrine Disorders: No - HEMATOLOGICAL/ONCOLOGICAL Hx Human Immunodeficiency Virus (HIV): No - INTEGUMENTARY Hx Dermatological Problems: No Other/Comment: sun foote noted to face forehead and ext - MUSCULOSKELETAL/RHEUMATOLOGICAL Hx Arthritis: Yes (spine) - GASTROINTESTINAL Hx Gastrointestinal Disorders: No - GENITOURINARY/GYNECOLOGICAL Hx Genitourinary Disorders: No Other/Comment: denies - PSYCHIATRIC Hx Psychophysiologic Disorder: No Hx Substance Use: No - SURGICAL HISTORY Hx Cholecystectomy: Yes - ANESTHESIA Hx Anesthesia: Yes Hx Anesthesia Reactions: No Meds Allergies/Adverse Reactions: Allergies Allergy/AdvReac Type Severity Reaction Status Date / Time No Known Allergies Allergy Verified 06/08/18 09:24 Physical Exam - Constitutional Appears: Well, Non-toxic, No Acute Distress - Head Exam Head Exam: ATRAUMATIC, NORMOCEPHALIC - Eye Exam Eye Exam: EOMI - ENT Exam ENT Exam: Mucous Membranes Moist - Respiratory Exam Respiratory Exam: NORMAL BREATHING PATTERN - Cardiovascular Exam Cardiovascular Exam: REGULAR RHYTHM. absent: Tachycardia - GI/Abdominal Exam GI & Abdominal Exam: Guarding (RUQ), Tenderness (RUQ). absent: Distended, Rebound, Soft - Neurological Exam Neurological exam: Alert, Oriented x3 - Psychiatric Exam Psychiatric exam: Normal Affect, Normal Mood - Skin Skin Exam: Dry, Intact, Normal Color, Warm Results - Vital Signs Recent Vital Signs: Last Vital Signs Temp 98.5 F 06/08/18 09:01 Pulse 75 06/08/18 09:01 Resp 19 06/08/18 09:01 BP 146/67 06/08/18 09:01 Pulse Ox 97 06/08/18 12:56 - Labs Result Diagrams: 06/08/18 09:35 06/08/18 09:35 Labs: Laboratory Results - last 24 hr 06/08/18 06/08/18 06/08/18 09:35 09:35 09:35 WBC 13.3 H RBC 4.43 Hgb 12.8 Hct 38.5 MCV 87.0 MCH 28.8 MCHC 33.1 RDW 14.2 Plt Count 154 MPV 8.3 Neut % (Auto) 85.8 H Lymph % (Auto) 8.7 L [place] % (Auto) 5.1 Eos % (Auto) 0.1 Baso % (Auto) 0.3 Neut # (Auto) 11.4 H Lymph # (Auto) 1.2 [place] # (Auto) 0.7 Eos # (Auto) 0.0 Baso # (Auto) 0.0 Neutrophils % (Manual) 89 H Lymphocytes % (Manual) 7 L Reactive Lymphs % 2 H Monocytes % (Manual) 2 Platelet Estimate Normal RBC Morphology Normal PT 12.7 INR 1.1 APTT 34.9 Sodium 136 Potassium 3.3 L Chloride 95 L Carbon Dioxide 30 Anion Gap 14 BUN 18 Creatinine 0.8 Est GFR ( Amer) > 60 Est GFR (Non-Af Amer) > 60 Random Glucose 124 H Calcium 10.0 Total Bilirubin 0.8 AST 26 ALT 35 Alkaline Phosphatase 60 Total Protein 7.4 Albumin 4.1 Globulin 3.3 Albumin/Globulin Ratio 1.2 Lipase 58 Urine Color Urine Clarity Urine pH Ur Specific [place] Urine Protein Urine Glucose (UA) Urine Ketones Urine Blood Urine Nitrate Urine Bilirubin Urine Urobilinogen Ur Leukocyte Esterase Urine RBC (Auto) Urine Microscopic WBC 06/08/18 12:05 WBC RBC Hgb Hct MCV MCH MCHC RDW Plt Count MPV Neut % (Auto) Lymph % (Auto) [place] % (Auto) Eos % (Auto) Baso % (Auto) Neut # (Auto) Lymph # (Auto) [place] # (Auto) Eos # (Auto) Baso # (Auto) Neutrophils % (Manual) Lymphocytes % (Manual) Reactive Lymphs % Monocytes % (Manual) Platelet Estimate RBC Morphology PT INR APTT Sodium Potassium Chloride Carbon Dioxide Anion Gap BUN Creatinine Est GFR ( Amer) Est GFR (Non-Af Amer) Random Glucose Calcium Total Bilirubin AST ALT Alkaline Phosphatase Total Protein Albumin Globulin Albumin/Globulin Ratio Lipase Urine Color Yellow Urine Clarity Clear Urine pH 6.0 Ur Specific [place] 1.031 H Urine Protein 30 Urine Glucose (UA) Neg Urine Ketones Negative Urine Blood Negative Urine Nitrate Negative Urine Bilirubin Negative Urine Urobilinogen 0.2-1.0 Ur Leukocyte Esterase Neg Urine RBC (Auto) 1 Urine Microscopic WBC < 1 Assessment & Plan - Assessment and Plan (Free Text) Assessment: 78 yr old male with appendicitis Plan: pain control IVF NPO continue Zosyn plan for lap appendectomy 1929 d/w Dr. Deonte Dillon, PGY 1 - Date & Time Date: 06/08/18 Time: 13:00 <Anthony Clemons - Last Filed: 06/08/18 20:52> History of Present Illness - History of Present Illness History of Present Illness: Patient was seen and examined at the bedside. Agree with resident's note above. Meds - Medications Medications: Current Medications Dextrose/Lactated Ringer's (Dextrose 5%/Lactated Ringer's) 1,000 mls @ 75 mls/hr IV .[id number] [facility] Stop: 06/09/18 17:37 Last Admin: 06/08/18 19:34 Dose: 75 mls/hr Piperacillin Sod/Tazobactam (Sod 3.375 gm/ Sodium Chloride) 100 mls @ 100 mls/hr IVPB Q6 [facility]; Protocol Last Admin: 06/08/18 20:18 Dose: 100 mls/hr Morphine Sulfate (Morphine) 2 mg IVP Q6 PRN PRN Reason: Pain, severe (8-10) Ondansetron HCl (Zofran Inj) 4 mg IVP Q4 PRN PRN Reason: Nausea/Vomiting Physical Exam - GI/Abdominal Exam Additional comments: soft, right sided tenderness, ND, BS+, no rebound, no guarding, well healed incisions from prior lap [place] Results - Vital Signs Recent Vital Signs: Last Vital Signs Temp 100.4 F H 06/08/18 19:35 Pulse 89 06/08/18 20:01 Resp 19 06/08/18 19:35 BP 149/75 06/08/18 19:35 Pulse Ox 94 L 06/08/18 19:35 - Labs Result Diagrams: 06/08/18 09:35 06/08/18 19:50 Labs: Laboratory Results - last 24 hr 06/08/18 06/08/18 06/08/18 09:35 09:35 09:35 WBC 13.3 H RBC 4.43 Hgb 12.8 Hct 38.5 MCV 87.0 MCH 28.8 MCHC 33.1 RDW 14.2 Plt Count 154 MPV 8.3 Neut % (Auto) 85.8 H Lymph % (Auto) 8.7 L [place] % (Auto) 5.1 Eos % (Auto) 0.1 Baso % (Auto) 0.3 Neut # (Auto) 11.4 H Lymph # (Auto) 1.2 [place] # (Auto) 0.7 Eos # (Auto) 0.0 Baso # (Auto) 0.0 Neutrophils % (Manual) 89 H Lymphocytes % (Manual) 7 L Reactive Lymphs % 2 H Monocytes % (Manual) 2 Platelet Estimate Normal RBC Morphology Normal PT 12.7 INR 1.1 APTT 34.9 Sodium 136 Potassium 3.3 L Chloride 95 L Carbon Dioxide 30 Anion Gap 14 BUN 18 Creatinine 0.8 Est GFR ( Amer) > 60 Est GFR (Non-Af Amer) > 60 Random Glucose 124 H Calcium 10.0 Total Bilirubin 0.8 AST 26 ALT 35 Alkaline Phosphatase 60 Total Protein 7.4 Albumin 4.1 Globulin 3.3 Albumin/Globulin Ratio 1.2 Lipase 58 Urine Color Urine Clarity Urine pH Ur Specific [place] Urine Protein Urine Glucose (UA) Urine Ketones Urine Blood Urine Nitrate Urine Bilirubin Urine Urobilinogen Ur Leukocyte Esterase Urine RBC (Auto) Urine Microscopic WBC 06/08/18 06/08/18 12:05 19:50 WBC RBC Hgb Hct MCV MCH MCHC RDW Plt Count MPV Neut % (Auto) Lymph % (Auto) [place] % (Auto) Eos % (Auto) Baso % (Auto) Neut # (Auto) Lymph # (Auto) [place] # (Auto) Eos # (Auto) Baso # (Auto) Neutrophils % (Manual) Lymphocytes % (Manual) Reactive Lymphs % Monocytes % (Manual) Platelet Estimate RBC Morphology PT INR APTT Sodium 136 Potassium 3.6 Chloride 99 Carbon Dioxide 26 Anion Gap 15 BUN 16 Creatinine 0.8 Est GFR ( Amer) > 60 Est GFR (Non-Af Amer) > 60 Random Glucose 111 H Calcium 9.6 Total Bilirubin AST ALT Alkaline Phosphatase Total Protein Albumin Globulin Albumin/Globulin Ratio Lipase Urine Color Yellow Urine Clarity Clear Urine pH 6.0 Ur Specific [place] 1.031 H Urine Protein 30 Urine Glucose (UA) Neg Urine Ketones Negative Urine Blood Negative Urine Nitrate Negative Urine Bilirubin Negative Urine Urobilinogen 0.2-1.0 Ur Leukocyte Esterase Neg Urine RBC (Auto) 1 Urine Microscopic WBC < 1 - Imaging and Cardiology CT scan - abdomen Status: Image reviewed by me, Report reviewed by me
[2018-06-08] MEDS ORDERED: Morphine 4 MG/ML VIAL IVP PRN ×2 (17:36→23:46)
[2018-06-08] MEDS ORDERED: Dextrose 5%/Lactated Ringer's 1,000 ML IV SCH ×2 (17:45)
[2018-06-08] MEDS ORDERED: Piperacillin/Tazobact 3.375 gm Inj IVPB ONE (20:13)
[2018-06-08] MEDS: Piperacillin/Tazobact 3.375 GM in Sodium Chloride 0.9% 100 ML IVPB SCH (20:18)
[2018-06-08 20:33] LABS: BLOOD UREA NITROGEN 16 mg/dl (9-20); CALCIUM 9.6 mg/dL (8.4-10.2); GFR NON-AFRICAN AMERICAN > 60
[2018-06-08] MEDS ORDERED: Bupivacaine 0.5% Inj(30mL) ONE (21:04)
[2018-06-08] MEDS ORDERED: Lactated Ringer's 1,000 ML IV ONE (22:00)
[2018-06-08] MEDS ORDERED: Rocuronium 10 mg/ml (5 ml) ONE (22:07)
[2018-06-08] MEDS ORDERED: Propofol 10 mg/ml Inj (20 ML) ONE (22:07)
[2018-06-08] MEDS ORDERED: Sevoflurane - Inhalation Anesthetic Liq (250 ml) ONE (22:29)
[2018-06-08] MEDS ORDERED: Lactated Ringer's 1,000 ML IV SCH (23:45)
[2018-06-08] MEDS ORDERED: Oxycodone/Acetaminophen 5/325 mg Tab PO PRN (23:46)
--- NOTE | 2018-06-08 23:50 | PCM.SURG1 ---
Surgeon's Initial Post Op Note - Surgeon's Notes Surgeon: Dr. Anthony Clemons Door Liner Helper: Dr. Annita Dillon, PGY 1 Type of Anesthesia: General Endo Pre-Operative Diagnosis: acute appendicitis Operative Findings: acutely inflamed appendix Post-Operative Diagnosis: acute appendicitis Operation Performed: laparoscopic appendectomy Specimen/Specimens Removed: appendix Estimated Blood Loss: EBL {In ML}: 5 Blood Products Given: N/A Drains Used: No Drains Post-Op Condition: Fair Date of Surgery/Procedure: 06/08/18 Time of Surgery/Procedure: 21:30
--- NOTE | 2018-06-08 23:55 | CP.PCM.HP ---
History of Present Illness - History of Present Illness History of Present Illness: History and physical CC: RUQ pain Patient is a 78 yr old male PMH HTN HLD CHF diverticulitis and prior appendicitis treated with antibiotics at the [place] last year presents to [facility] ED with new onset constant sharp RUQ pain this am associated with n/v x 2. He is resting comfortably in bed in no acute distress. He denies radiation of the pain, alleviating/aggravating factors or association with eating. Patient denies associated BHAKTA, CP, SOB, fevers/chills, dysuria, stool changes and extremity pain or weakness. Last normal BM was this AM. He has no other complaints at this time. PMH: HTN HLD CHF diverticulitis and prior appendicitis PSH: cholecystectomy All: nkda Social; former tobacco and ETOH abuse quit approximately 17 years ago, denies drug use, previously managed restaurants now retired Present on Admission - Present on Admission Any Indicators Present on Admission: No Review of Systems - Review of Systems All systems: reviewed and no additional remarkable complaints except (as per HP I) Past Patient History - Past Medical History & Family History Past Medical History?: Yes - Past Social History Alcohol: None Drugs: Denies - CARDIAC Hx Congestive Heart Failure: Yes Hx Hypertension: Yes - PULMONARY Hx Respiratory Disorders: Yes Hx Chronic Obstructive Pulmonary Disease (COPD): Yes - NEUROLOGICAL Hx Neurological Disorder: No - HEENT Hx HEENT Problems: No - RENAL Hx Chronic Kidney Disease: No - ENDOCRINE/METABOLIC Hx Endocrine Disorders: No - HEMATOLOGICAL/ONCOLOGICAL Hx Human Immunodeficiency Virus (HIV): No - INTEGUMENTARY Other/Comment: sun foote noted to face forehead and ext. skin tags to back - MUSCULOSKELETAL/RHEUMATOLOGICAL Hx Musculoskeletal Disorders: Yes Hx Arthritis: Yes (spine) - GASTROINTESTINAL Hx Gastrointestinal Disorders: Yes Hx Gall Bladder Disease: Yes - GENITOURINARY/GYNECOLOGICAL Hx Genitourinary Disorders: Yes Hx Prostate Problems: Yes (BPH) - PSYCHIATRIC Hx Psychophysiologic Disorder: Yes Hx Anxiety: Yes - SURGICAL HISTORY Hx Surgeries: Yes Hx Cholecystectomy: Yes - ANESTHESIA Hx Anesthesia: Yes Hx Anesthesia Reactions: No Hx Malignant Hyperthermia: No Meds Allergies/Adverse Reactions: Allergies Allergy/AdvReac Type Severity Reaction Status Date / Time No Known Allergies Allergy Verified 06/08/18 09:24 Physical Exam - Constitutional Appears: Well, Non-toxic, No Acute Distress - Head Exam Head Exam: ATRAUMATIC, NORMOCEPHALIC - Eye Exam Eye Exam: EOMI - ENT Exam ENT Exam: Mucous Membranes Moist - Respiratory Exam Respiratory Exam: NORMAL BREATHING PATTERN - Cardiovascular Exam Cardiovascular Exam: REGULAR RHYTHM - GI/Abdominal Exam GI & Abdominal Exam: Guarding (RUQ), Soft, Tenderness (RUQ). absent: Distended - Extremities Exam Extremities exam: Positive for: pedal pulses present. Negative for: calf tenderness, pedal edema - Back Exam Back exam: absent: CVA tenderness (L), CVA tenderness (R) - Neurological Exam Neurological exam: Alert, Oriented x3 - Skin Skin Exam: Dry, Intact, Normal Color, Warm Results - Vital Signs Recent Vital Signs: Last Vital Signs Temp 102.6 F H 06/08/18 21:05 Pulse 85 06/08/18 21:05 Resp 19 06/08/18 21:05 BP 137/62 06/08/18 21:05 Pulse Ox 95 06/08/18 21:05 - Labs Result Diagrams: 06/08/18 09:35 06/08/18 19:50 Labs: Laboratory Results - last 24 hr 06/08/18 06/08/18 06/08/18 09:35 09:35 09:35 WBC 13.3 H RBC 4.43 Hgb 12.8 Hct 38.5 MCV 87.0 MCH 28.8 MCHC 33.1 RDW 14.2 Plt Count 154 MPV 8.3 Neut % (Auto) 85.8 H Lymph % (Auto) 8.7 L [place] % (Auto) 5.1 Eos % (Auto) 0.1 Baso % (Auto) 0.3 Neut # (Auto) 11.4 H Lymph # (Auto) 1.2 [place] # (Auto) 0.7 Eos # (Auto) 0.0 Baso # (Auto) 0.0 Neutrophils % (Manual) 89 H Lymphocytes % (Manual) 7 L Reactive Lymphs % 2 H Monocytes % (Manual) 2 Platelet Estimate Normal RBC Morphology Normal PT 12.7 INR 1.1 APTT 34.9 Sodium 136 Potassium 3.3 L Chloride 95 L Carbon Dioxide 30 Anion Gap 14 BUN 18 Creatinine 0.8 Est GFR ( Amer) > 60 Est GFR (Non-Af Amer) > 60 Random Glucose 124 H Calcium 10.0 Total Bilirubin 0.8 AST 26 ALT 35 Alkaline Phosphatase 60 Total Protein 7.4 Albumin 4.1 Globulin 3.3 Albumin/Globulin Ratio 1.2 Lipase 58 Urine Color Urine Clarity Urine pH Ur Specific [place] Urine Protein Urine Glucose (UA) Urine Ketones Urine Blood Urine Nitrate Urine Bilirubin Urine Urobilinogen Ur Leukocyte Esterase Urine RBC (Auto) Urine Microscopic WBC Blood Type Antibody Screen BBK History Checked 06/08/18 06/08/18 06/08/18 12:05 19:50 19:50 WBC RBC Hgb Hct MCV MCH MCHC RDW Plt Count MPV Neut % (Auto) Lymph % (Auto) [place] % (Auto) Eos % (Auto) Baso % (Auto) Neut # (Auto) Lymph # (Auto) [place] # (Auto) Eos # (Auto) Baso # (Auto) Neutrophils % (Manual) Lymphocytes % (Manual) Reactive Lymphs % Monocytes % (Manual) Platelet Estimate RBC Morphology PT INR APTT Sodium 136 Potassium 3.6 Chloride 99 Carbon Dioxide 26 Anion Gap 15 BUN 16 Creatinine 0.8 Est GFR ( Amer) > 60 Est GFR (Non-Af Amer) > 60 Random Glucose 111 H Calcium 9.6 Total Bilirubin AST ALT Alkaline Phosphatase Total Protein Albumin Globulin Albumin/Globulin Ratio Lipase Urine Color Yellow Urine Clarity Clear Urine pH 6.0 Ur Specific [place] 1.031 H Urine Protein 30 Urine Glucose (UA) Neg Urine Ketones Negative Urine Blood Negative Urine Nitrate Negative Urine Bilirubin Negative Urine Urobilinogen 0.2-1.0 Ur Leukocyte Esterase Neg Urine RBC (Auto) 1 Urine Microscopic WBC < 1 Blood Type O POSITIVE Antibody Screen Negative BBK History Checked No verified bt Assessment & Plan - Assessment and Plan (Free Text) Assessment: 78 yr old male with acute appendicitis Plan: Zosyn IVF NPO pain control maintain vitals Patient to go to OR for appendectomy with Dr. Clemons d/w Dr. Deonte Dillon, PGY 1 - Date & Time Date: 06/08/18 Time: 13:00 Decision To Admit - Pt Status Changed To: Hospital Disposition Of: Inpatient - Admit Certification Admit to Inpatient:: After my assessment, the patient will require hospitalization for at least two midnights. This is because of the severity of symptoms shown, intensity of services needed, and/or the medical risk in this patient being treated as an outpatient. - . Bed Request Type: Med/Surg Admitting Physician: Tulio Weeks
--- NOTE | 2018-06-09 03:42 | OP ---
PROCEDURE DATE: 06/08/2018 PREOPERATIVE DIAGNOSIS: Acute appendicitis. POSTOPERATIVE DIAGNOSIS: Acute appendicitis. PROCEDURE: Laparoscopic appendectomy. SURGEON: Anthony Clemons MD CYTOGENETICS TECHNOLOGIST: , certified surgical assistant ANESTHESIOLOGIST: Maged Waters MD ANESTHESIA: General endotracheal intubation. INTRAVENOUS FLUIDS: Crystalloids. ESTIMATED BLOOD LOSS: 5 mL. INTRAOPERATIVE FINDINGS: Acute appendicitis. SPECIMEN: Appendix. BRIEF HISTORY: Mr. Andujar is a very pleasant 78-year-old gentleman who came to the hospital, complaining of right-sided abdominal pain and upon further investigation on the CAT scan, the patient was found to have elevated white blood cell count to 13 as well as CAT scan findings significant for acute appendicitis. All the risks and benefits of the procedure were explained to the patient. With the patient having a full understanding of all the risks and benefits involved, informed consent was obtained. The patient was taken to the operating room for above-stated procedure. DESCRIPTION OF PROCEDURE: The patient was brought into the operating room and placed supine on the operating room table. Bilateral Flowtron boots were applied to the patient's lower extremities. After successful induction of anesthesia and successful endotracheal intubation by the anesthesia team, Hernandez catheter was inserted into the patient's urinary bladder. Subsequent to that, the patient's abdomen was shaved and prepped with ChloraPrep stick and draped in a standard surgical fashion. Prior to the beginning of the procedure, a time-out was called in the room, and everyone in the room were in agreement. Using a Veress needle, the patient's abdomen was entered at the umbilicus. Pneumoperitoneum was achieved with good opening pressures. Once this was accomplished, using an 11-blade scalpel knife, approximately 5-mm incision was made in the umbilicus in a longitudinal fashion. Subsequent to that, a 5-mm trocar was introduced into the patient's abdomen. At this point in time, a 5-mm 0-degree scope was introduced into the patient's abdomen. Then, attention was turned to the lower mid abdomen. Using 11-blade scalpel knife, approximately 5-mm incision was made in a transverse fashion. Subsequent to that, a 5-mm trocar was introduced into the patient's abdomen. At this point in time, attention was turned to the left lower quadrant of the patient's abdomen. Using 11-blade scalpel knife, a 1-cm incision was made in the left lower quadrant of the patient's abdomen in a transverse fashion. Subsequent to that, a 12-mm trocar was introduced into the patient's abdomen. At this point in time, using Ryan and Geck graspers, the appendix was mobilized. Subsequent to that, using a Harmonic scalpel, the mesoappendix was taken all the way down to the cecum. Subsequent to that, a 45-mm blue load on an Endo ZORAIDA stapler was inserted into the patient's abdomen and placed around the appendix right base and staple was fired. At this point in time, Endo Catch bag was introduced into the patient's abdomen. Appendix was placed inside of the bag. Staple line was inspected for hemostasis. Hemostasis was confirmed. Subsequent to that, a 12-mm trocar together with Endo Catch bag and appendix were removed from the patient's abdomen and passed off to the [facility] as a specimen. Fascial layer at the 12-mm trocar site was closed with one interrupted 0 Vicryl suture on UR-5 needle. Subsequent to that, the patient's abdomen was fully desufflated. The rest of the trocars were removed from the patient's abdomen. The skin was closed with 4-0 Monocryl suture in a running subcuticular fashion. At the end of the procedure, incision sites were infiltrated with Marcaine local anesthetic. The patient's abdomen was washed and dried. Dermabond was applied to the site of the incisions. The patient was successfully extubated by the anesthesia team, [facility] to the [facility]. Hernandez catheter was removed from the patient's urinary bladder. The patient was taken to the recovery room in a stable condition. At the end of the procedure, all instrument counts, needles, and sponges were correct. Anthony Clemons MD
[2018-06-09] MEDS: Piperacillin/Tazobact 3.375 GM in Sodium Chloride 0.9% 100 ML IVPB SCH ×4 (03:57→21:33)
[2018-06-09 06:28] LABS: BASO % 0.2 % (0.0-2.0); HEMOGLOBIN 11.3 g/dL (12.0-18.0); LYMPH % 4.3 % (20.0-40.0); MEAN CELL VOLUME 87.8 fl (80.0-94.0); MEAN CORPUSCULAR HEMOGLOBIN 28.8 pg (27.0-31.0); MEAN CORPUSCULAR HGB CONC 32.8 g/dL (33.0-37.0); MEAN PLATELET VOLUME 8.7 fl (7.2-11.7); MONO # 1.7 K/uL (0.0-0.8); MONO % 7.1 % (0.0-10.0); NEUT # 20.7 K/uL (1.8-7.0); NEUT % 88.4 % (50.0-75.0); RBC 3.94 Mil/uL (4.40-5.90); RED CELL DISTRIBUTION WIDTH 14.4 % (11.5-14.5); WHITE BLOOD COUNT 23.5 K/uL (4.8-10.8)
[2018-06-09 06:36] LABS: ALB/GLOB RATIO 1.1 (1.0-2.1); ALBUMIN 3.3 g/dL (3.5-5.0); ALT/SGPT 29 U/L (21-72); AST/SGOT 22 U/L (17-59); BLOOD UREA NITROGEN 19 mg/dl (9-20); CALCIUM 8.8 mg/dL (8.4-10.2); GFR NON-AFRICAN AMERICAN > 60
[2018-06-09] MEDS: Oxycodone/Acetaminophen 5/325 mg Tab PO PRN ×3 (06:49→21:27)
--- NOTE | 2018-06-09 08:38 | CP.PCM.PN ---
Subjective - Date & Time of Evaluation Date of Evaluation: 06/09/18 Time of Evaluation: 08:36 - Subjective Subjective: Surgery: Dr. Clemons Pt seen and examined. Has mild pain. No F/C, no N/V. Had some difficulty w. urination. Objective - Vital Signs/Intake and Output Vital Signs (last 24 hours): Temp Pulse Resp BP Pulse Ox 98.4 F 62 19 105/55 L 96 06/09/18 08:20 06/09/18 08:20 06/09/18 08:20 06/09/18 08:20 06/09/18 08:20 Intake and Output: 06/09/18 06/09/18 06:59 18:59 Intake Total 700 Output Total 150 Balance 550 - Medications Medications: Current Medications Amlodipine Besylate (Norvasc) 10 mg PO DAILY [facility] Aspirin (Aspirin Chewable) 81 mg PO DAILY [facility] Hydrochlorothiazide (Microzide) 12.5 mg PO DAILY [facility] Dextrose/Lactated Ringer's (Dextrose 5%/Lactated Ringer's) 1,000 mls @ 75 mls/hr IV .[id number] [facility] Stop: 06/09/18 17:37 Last Admin: 06/08/18 19:34 Dose: 75 mls/hr Piperacillin Sod/Tazobactam (Sod 3.375 gm/ Sodium Chloride) 100 mls @ 100 mls/hr IVPB Q6 [facility]; Protocol Last Admin: 06/09/18 03:57 Dose: 100 mls/hr Lactated Ringer's (Lactated Ringer's) 1,000 mls @ 75 mls/hr IV .[id number] [facility] Lisinopril (Zestril) 40 mg PO DAILY [facility] Metoprolol Succinate (Toprol Xl) 100 mg PO BID@0900,2100 [facility] Morphine Sulfate (Morphine) 2 mg IVP Q4 PRN PRN Reason: Pain, severe (8-10) Ondansetron HCl (Zofran Inj) 4 mg IVP Q4 PRN PRN Reason: Nausea/Vomiting Oxycodone/Acetaminophen (Percocet 5/325 Mg Tab) 1 tab PO Q4 PRN PRN Reason: Pain, Mild (1-3) Stop: 06/11/18 23:47 Oxycodone/Acetaminophen (Percocet 5/325 Mg Tab) 2 tab PO Q4 PRN PRN Reason: Pain, moderate (4-7) Stop: 06/11/18 23:47 Last Admin: 06/09/18 06:49 Dose: 2 tab Tamsulosin HCl (Flomax) 0.4 mg PO DAILY [place] - Labs Labs: 06/09/18 05:45 06/09/18 05:45 PT 12.7 Seconds (9.8-13.1) 06/08/18 09:35 INR 1.1 06/08/18 09:35 APTT 34.9 Seconds (25.6-37.1) 06/08/18 09:35 - Constitutional Appears: Non-toxic, No Acute Distress - Head Exam Head Exam: ATRAUMATIC, NORMOCEPHALIC - Eye Exam Eye Exam: EOMI - ENT Exam ENT Exam: Mucous Membranes Moist - Neck Exam Neck Exam: Full ROM - Respiratory Exam Respiratory Exam: NORMAL BREATHING PATTERN. absent: Accessory Muscle Use, Respiratory Distress - GI/Abdominal Exam GI & Abdominal Exam: Soft, Tenderness (doyle-incisional ). absent: Distended, Firm, Guarding, Rigid, Rebound Additional comments: incision C/D/I - Extremities Exam Extremities Exam: absent: Calf Tenderness, Pedal Edema - Neurological Exam Neurological Exam: Alert, Awake, Oriented x3 - Psychiatric Exam Psychiatric exam: Normal Affect, Normal Mood Assessment and Plan - Assessment and Plan (Free Text) Assessment: 78M w. appendicitis, s/p lap appy, POD#1 -advance diet to HHD -increase in wbc, c/w IV abx, repeat labs in AM -encourage OOB, ambulation, IS use -d/w attending [facility] PGY4
--- NOTE | 2018-06-09 10:26 | CP.PCM.PN ---
Subjective - Date & Time of Evaluation Date of Evaluation: 06/09/18 Time of Evaluation: 10:16 - Subjective Subjective: General Surgery Pt seen and examined this AM. He reports having some incisional abdominal pain and c/o thirst. He states he has chronic dry mouth and feels like he has sand in his mouth. He hasn't voided adequately since surgery. Bladder scan was done, pt with 175ml. Denies feeling his bladder full. Labs and vitals noted. WBC 23.5 from 13.3 PE Gen: pt laying in bed in NAD Skin: warm and dry Mouth: Mucous membrane dry Cardio: s1s2 RRR. (-) rales Abd: Soft, (+) dermabonded surgical incisions with mild tenderness, (-) dis tention Extr: (-) calf tenderness bilaterally A/P POD 1 s/p lap appy WBC increased significantly, will continue IV abx Adv diet to solids Encourage OOB Encourage IS Repeat labs in AM. Objective - Vital Signs/Intake and Output Vital Signs (last 24 hours): Temp Pulse Resp BP Pulse Ox 98.4 F 62 19 105/55 L 96 06/09/18 08:20 06/09/18 08:20 06/09/18 08:20 06/09/18 08:20 06/09/18 08:20 Intake and Output: 06/09/18 06/09/18 06:59 18:59 Intake Total 700 Output Total 150 Balance 550 - Medications Medications: Current Medications Amlodipine Besylate (Norvasc) 10 mg PO DAILY [facility] Aspirin (Aspirin Chewable) 81 mg PO DAILY [facility] Last Admin: 06/09/18 08:49 Dose: 81 mg Docusate Sodium (Colace) 100 mg PO BID [facility] Hydrochlorothiazide (Microzide) 12.5 mg PO DAILY [facility] Dextrose/Lactated Ringer's (Dextrose 5%/Lactated Ringer's) 1,000 mls @ 75 mls/hr IV .[id number] [facility] Stop: 06/09/18 17:37 Last Admin: 06/08/18 19:34 Dose: 75 mls/hr Piperacillin Sod/Tazobactam (Sod 3.375 gm/ Sodium Chloride) 100 mls @ 100 mls/hr IVPB Q6 [facility]; Protocol Last Admin: 06/09/18 09:00 Dose: 100 mls/hr Lactated Ringer's (Lactated Ringer's) 1,000 mls @ 75 mls/hr IV .[id number] [facility] Lisinopril (Zestril) 40 mg PO DAILY@1600 [facility] Metoprolol Succinate (Toprol Xl) 100 mg PO BID@0900,2100 [facility] Morphine Sulfate (Morphine) 2 mg IVP Q4 PRN PRN Reason: Pain, severe (8-10) Ondansetron HCl (Zofran Inj) 4 mg IVP Q4 PRN PRN Reason: Nausea/Vomiting Oxycodone/Acetaminophen (Percocet 5/325 Mg Tab) 1 tab PO Q4 PRN PRN Reason: Pain, Mild (1-3) Stop: 06/11/18 23:47 Oxycodone/Acetaminophen (Percocet 5/325 Mg Tab) 2 tab PO Q4 PRN PRN Reason: Pain, moderate (4-7) Stop: 06/11/18 23:47 Last Admin: 06/09/18 06:49 Dose: 2 tab Tamsulosin HCl (Flomax) 0.4 mg PO DAILY [facility] Last Admin: 06/09/18 08:49 Dose: 0.4 mg - Labs Labs: 06/09/18 05:45 06/09/18 05:45 PT 12.7 Seconds (9.8-13.1) 06/08/18 09:35 INR 1.1 06/08/18 09:35 APTT 34.9 Seconds (25.6-37.1) 06/08/18 09:35
[2018-06-09] MEDS: Metoprolol Succinate 100 mg XL Tab PO SCH ×2 (12:29→21:30)
[2018-06-10] MEDS: Piperacillin/Tazobact 3.375 GM in Sodium Chloride 0.9% 100 ML IVPB SCH ×2 (03:58→11:47)
[2018-06-10 06:28] LABS: HEMOGLOBIN 11.7 g/dL (12.0-18.0); MEAN CELL VOLUME 87.2 fl (80.0-94.0); MEAN CORPUSCULAR HEMOGLOBIN 29.4 pg (27.0-31.0); MEAN CORPUSCULAR HGB CONC 33.7 g/dL (33.0-37.0); RBC 3.97 Mil/uL (4.40-5.90); RED CELL DISTRIBUTION WIDTH 14.2 % (11.5-14.5); WHITE BLOOD COUNT 9.2 K/uL (4.8-10.8)
[2018-06-10] MEDS: Oxycodone/Acetaminophen 5/325 mg Tab PO PRN (06:45)
[2018-06-10 06:55] LABS: BLOOD UREA NITROGEN 18 mg/dl (9-20); CALCIUM 8.6 mg/dL (8.4-10.2); GFR NON-AFRICAN AMERICAN > 60
--- NOTE | 2018-06-10 07:47 | CP.PCM.PN ---
<DillonAnnita - Last Filed: 06/10/18 08:09> Subjective - Date & Time of Evaluation Date of Evaluation: 06/10/18 Time of Evaluation: 07:10 - Subjective Subjective: Surgery progress note: Dr. Clemons Patient seen and examined this at bedside. He is able to sit on the edge of the bed and ambulate to the bathroom without assistance. He indicates that he is experiencing a slight dry mouth but has been tolerating his diet well and has been drinking water. Previous urinary complaints have resolved. He otherwise denies f/c, BHAKTA, CP, SOB, abdominal pain, n/v, and extremity pain or weakness. He endorses mild pain at the right inferior incision. Objective - Vital Signs/Intake and Output Vital Signs (last 24 hours): Temp Pulse Resp BP Pulse Ox 99.3 F 70 20 133/65 96 06/10/18 04:21 06/10/18 04:21 06/10/18 04:21 06/10/18 04:21 06/10/18 04:21 - Medications Medications: Current Medications Acetaminophen (Tylenol 325mg Tab) 650 mg PO Q6 PRN PRN Reason: Fever >100.4 F Amlodipine Besylate (Norvasc) 10 mg PO DAILY [facility] Last Admin: 06/09/18 12:30 Dose: 10 mg Aspirin (Aspirin Chewable) 81 mg PO DAILY [facility] Last Admin: 06/09/18 08:49 Dose: 81 mg Docusate Sodium (Colace) 100 mg PO BID [facility] Last Admin: 06/09/18 16:30 Dose: 100 mg Finasteride (Proscar) 5 mg PO DAILY [facility] Last Admin: 06/09/18 17:53 Dose: 5 mg Hydrochlorothiazide (Microzide) 12.5 mg PO DAILY [facility] Last Admin: 06/09/18 12:31 Dose: 12.5 mg Piperacillin Sod/Tazobactam (Sod 3.375 gm/ Sodium Chloride) 100 mls @ 100 mls /hr IVPB Q6 [facility]; Protocol Last Admin: 06/10/18 03:58 Dose: 100 mls/hr Lactated Ringer's (Lactated Ringer's) 1,000 mls @ 75 mls/hr IV .[id number] [facility] Lisinopril (Zestril) 40 mg PO DAILY@1600 [facility] Last Admin: 06/09/18 16:31 Dose: 40 mg Metoprolol Succinate (Toprol Xl) 100 mg PO BID@0900,2100 [facility] Last Admin: 06/09/18 21:30 Dose: 100 mg Morphine Sulfate (Morphine) 2 mg IVP Q4 PRN PRN Reason: Pain, severe (8-10) Ondansetron HCl (Zofran Inj) 4 mg IVP Q4 PRN PRN Reason: Nausea/Vomiting Oxycodone/Acetaminophen (Percocet 5/325 Mg Tab) 1 tab PO Q4 PRN PRN Reason: Pain, Mild (1-3) Stop: 06/11/18 23:47 Oxycodone/Acetaminophen (Percocet 5/325 Mg Tab) 2 tab PO Q4 PRN PRN Reason: Pain, moderate (4-7) Stop: 06/11/18 23:47 Last Admin: 06/10/18 06:45 Dose: 2 tab Tamsulosin HCl (Flomax) 0.4 mg PO DAILY [facility] Last Admin: 06/09/18 08:49 Dose: 0.4 mg - Labs Labs: 06/10/18 05:45 06/10/18 05:50 PT 12.7 Seconds (9.8-13.1) 06/08/18 09:35 INR 1.1 06/08/18 09:35 APTT 34.9 Seconds (25.6-37.1) 06/08/18 09:35 - Constitutional Appears: Well, Non-toxic, No Acute Distress - Head Exam Head Exam: ATRAUMATIC, NORMOCEPHALIC - Eye Exam Eye Exam: EOMI - ENT Exam ENT Exam: Mucous Membranes Moist - Respiratory Exam Respiratory Exam: NORMAL BREATHING PATTERN - Cardiovascular Exam Cardiovascular Exam: REGULAR RHYTHM - GI/Abdominal Exam GI & Abdominal Exam: Soft. absent: Distended, Guarding, Tenderness Additional comments: incisions cdi dermabond in place no erthema, induration or edema at incision sites - Extremities Exam Extremities Exam: absent: Calf Tenderness, Pedal Edema - Neurological Exam Neurological Exam: Alert, Awake, Oriented x3 - Psychiatric Exam Psychiatric exam: Normal Affect, Normal Mood - Skin Skin Exam: Dry, Intact, Normal Color, Warm Additional comments: incisions cdi with dermabond in place Assessment and Plan - Assessment and Plan (Free Text) Assessment: 78 yr old male s/p appendectomy for appendicitis POD 2 Plan: Leukocytosis resolved clear for D/c from surgical standpoint will go home on Augmentin and percocet follow up in office with Dr. Clemons will d/w Dr. Deonte Dillon, PGY 1 <Anthony Clemons - Last Filed: 06/10/18 11:37> Subjective - Date & Time of Evaluation Time of Evaluation: 11:00 - Subjective Subjective: Patient was seen and examined at the bedside. Agree with resident's note above. Objective - Vital Signs/Intake and Output Vital Signs (last 24 hours): Temp Pulse Resp BP Pulse Ox 98 F 66 18 149/82 94 L 06/10/18 09:00 06/10/18 09:00 06/10/18 09:00 06/10/18 09:00 06/10/18 09:00 - Medications Medications: Current Medications Acetaminophen (Tylenol 325mg Tab) 650 mg PO Q6 PRN PRN Reason: Fever >100.4 F Amlodipine Besylate (Norvasc) 10 mg PO DAILY [facility] Last Admin: 06/10/18 08:52 Dose: 10 mg Aspirin (Aspirin Chewable) 81 mg PO DAILY [facility] Last Admin: 06/10/18 08:52 Dose: 81 mg Docusate Sodium (Colace) 100 mg PO BID [facility] Last Admin: 06/10/18 08:52 Dose: 100 mg Finasteride (Proscar) 5 mg PO DAILY [facility] Last Admin: 06/10/18 08:52 Dose: 5 mg Hydrochlorothiazide (Microzide) 12.5 mg PO DAILY [facility] Last Admin: 06/10/18 08:53 Dose: 12.5 mg Piperacillin Sod/Tazobactam (Sod 3.375 gm/ Sodium Chloride) 100 mls @ 100 mls/hr IVPB Q6 [facility]; Protocol Last Admin: 06/10/18 03:58 Dose: 100 mls/hr Lactated Ringer's (Lactated Ringer's) 1,000 mls @ 75 mls/hr IV .[id number] [facility] Lisinopril (Zestril) 40 mg PO DAILY@1600 [facility] Last Admin: 06/09/18 16:31 Dose: 40 mg Metoprolol Succinate (Toprol Xl) 100 mg PO BID@0900,2100 [facility] Last Admin: 06/10/18 08:52 Dose: 100 mg Morphine Sulfate (Morphine) 2 mg IVP Q4 PRN PRN Reason: Pain, severe (8-10) Ondansetron HCl (Zofran Inj) 4 mg IVP Q4 PRN PRN Reason: Nausea/Vomiting Oxycodone/Acetaminophen (Percocet 5/325 Mg Tab) 1 tab PO Q4 PRN PRN Reason: Pain, Mild (1-3) Stop: 06/11/18 23:47 Oxycodone/Acetaminophen (Percocet 5/325 Mg Tab) 2 tab PO Q4 PRN PRN Reason: Pain, moderate (4-7) Stop: 06/11/18 23:47 Last Admin: 06/10/18 06:45 Dose: 2 tab Tamsulosin HCl (Flomax) 0.4 mg PO DAILY [facility] Last Admin: 06/10/18 08:52 Dose: 0.4 mg - Labs Labs: 06/10/18 05:45 06/10/18 05:50 PT 12.7 Seconds (9.8-13.1) 06/08/18 09:35 INR 1.1 06/08/18 09:35 APTT 34.9 Seconds (25.6-37.1) 06/08/18 09:35 - GI/Abdominal Exam Additional comments: soft, very mild doyle-incisional tenderness, ND, BS+, no rebound, no guarding, incisions clean, no erythema, no drainage, dermobond in place
[2018-06-10] MEDS: Metoprolol Succinate 100 mg XL Tab PO SCH (08:52)
[2018-06-10 09:02] VITALS: RESP 18; O2SAT 94
[2018-06-10 17:09] VITALS: BP 120/65; PULSE 62; TEMP 98.2
== END 2018-06-10 19:41 | disposition home or self-care (01) | DRG 342 ==
LOC: H.ER 09:00 → H.ERHOLD 12:48 → H.MEDSURG1 06-09 01:11
PROVIDERS: ADMIT Family Medicine; ATTEND Family Medicine
PROC: 0DTJ4ZZ Resection of Appendix, Percutaneous Endoscopic Approach (ICD-10-PCS; principal; 2018-06-08 19:30)
DX: K35.891 Other acute appendicitis without perforation, with gangrene (principal); K57.92 Diverticulitis of intestine, part unspecified, without perforation or abscess without bleeding; I11.0 Hypertensive heart disease with heart failure; I50.9 Heart failure, unspecified; E78.5 Hyperlipidemia, unspecified; E78.00 Pure hypercholesterolemia, unspecified; R68.2 Dry mouth, unspecified; Z87.891 Personal history of nicotine dependence; Z79.82 Long term (current) use of aspirin